=== PATIENT | male | born 1970 | race Caucasian/White ===

== ENCOUNTER 2019-06-14 14:43 | Emergency (ER) | payer MEDICARE ==
--- NOTE | 2019-06-14 15:37 | XRAY ---
Indication: Short of breath. Comparison: April 04, 2019. PA/lateral chest demonstrates 3 new left posterior metallic BBs. Remaining chest unchanged again demonstrating COPD and left perihilar postsurgical changes. Bony thorax intact again with mild degenerative changes, old left rib fractures, and pectus excavatum deformity. No new/acute cardiopulmonary abnormalities.
--- NOTE | 2019-06-14 16:04 | ERPHSYRPT ---
- History of Present Illness Time Seen by Provider: 06/14/19 15:00 Source: patient Exam Limitations: no limitations Patient Subjective Stated Complaint: States "I went to Dr. Nolan's office for check up today and to assess the swelling on your left upper back. Its been swollen for 3-4 days and I feel short of breath". Triage Nursing Assessment: Pt presents to ER from Dr. Nolan's office for Shortness of breath and swelling on left upper back x 3-4 days. Pt had partial collapsed lung approx 5 years ago with tubes placed in left upper back. Pt area has remaining scars from drains with surrounding area appears swollen and hard to touch. Skin is pink, warm, and dry. Resp are slightly labored, lung sounds are clear but diminished throughout. Pt is alert and oriented x 3. Ambulates and talks in full sentences. Physician History: 49 y/o white male with h/o left posterolateral chest wall mass with assoc soa. pt noticed 3 days ago. there is associated soa. pt had a traumatic left chest wall chest tube because of left pneumothorax. pt sent here from dr. haines office Timing/Duration: day(s) (3) Severity: mild Modifying Factors: Improves With: nothing Associated Symptoms: shortness of breath, No cough Allergies/Adverse Reactions: aspirin Allergy (Unknown, Verified 06/14/19 15:01) Home Medications: Albuterol 2.5 mg/3 ml Neb [Proventil 2.5 mg/3 ml Neb] 2.5 mg NEB QID PRN 06/14/19 [History] Albuterol Sulfate [Proair Respiclick] 90 mcg IH BID PRN 06/14/19 [History] Budesonide/Formoterol Fumarate [Symbicort 160-4.5 Mcg Inhaler] 160 mcg IH BID [History] Famotidine 20 mg [Pepcid 20 MG] 20 mg PO BID 06/14/19 [History] Metoprolol Succinate 100 mg [Toprol Xl 100 MG] 100 mg PO DAILY 06/14/19 [ History] Tiotropium [place] [Spiriva] 1 cap PO DAILY 06/14/19 [History] Hx Tetanus, Diphtheria Vaccination/Date Given: Yes Hx Influenza Vaccination/Date Given: No Hx Pneumococcal Vaccination/Date Given: No Immunizations Up to Date: Yes - Review of Systems Constitutional: No Symptoms Eyes: No Symptoms Ears, Nose, & Throat: No Symptoms Respiratory: Dyspnea Cardiac: No Symptoms Abdominal/Gastrointestinal: No Symptoms Genitourinary Symptoms: No Symptoms Musculoskeletal: No Symptoms Skin: No Symptoms Neurological: No Symptoms Psychological: No Symptoms Endocrine: No Symptoms Hematologic/Lymphatic: No Symptoms Immunological/Allergic: No Symptoms All Other Systems: Reviewed and Negative - Past Medical History Pertinent Past Medical History: Yes Neurological History: No Pertinent History ENT History: No Pertinent History Cardiac History: Hypertension Respiratory History: Bronchitis, COPD, Emphysema, Pneumonia, Other Endocrine Medical History: No Pertinent History Musculoskeletal History: Osteoarthritis GI Medical History: GERD History: No Pertinent History Psycho-Social History: Anxiety, Depression Male Reproductive Disorders: No Pertinent History - Past Surgical History Past Surgical History: Yes Gastrointestinal: Appendectomy Male Surgical History: Testicular Surgery Other Surgical History: mole removed - Social History Smoking Status: Former smoker Exposure to second hand smoke: No Drug Use: none Patient Lives Alone: No - Nursing Vital Signs Nursing Vital Signs: Initial Vital Signs Temperature 98.6 F 06/14/19 14:44 Pulse Rate 85 06/14/19 14:44 Respiratory Rate 18 06/14/19 14:44 Blood Pressure 151/84 06/14/19 14:44 O2 Sat by Pulse Oximetry 98 06/14/19 14:44 Pain Scale Pain Intensity 4 - Physical Exam General Appearance: mild distress, alert, anxiety Eye Exam: PERRL/EOMI, eyes nml inspection Ears, Nose, Throat Exam: normal ENT inspection, moist mucous membranes Neck Exam: normal inspection, non-tender, supple, full range of motion Respiratory Exam: normal breath sounds, lungs clear, airway intact, diminished breath sounds (? 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 marlow. pt can be discharged to home if cxr reveals no acute cardiopulmonary issues cxr shows no acute cardiopulmonary abnormalities Discussed with Dr.: Zee Counseled pt/family regarding: diagnosis, need for follow-up, rad results - Departure Departure Disposition: Home Clinical Impression: Chest wall deformity Condition: Stable Critical Care Time: No Referrals: DEVANG MARLOW MD [Primary Care Provider] - Additional Instructions: follow up with primary doctor for further management
[2019-06-14 16:29] VITALS: O2SAT 94
[2019-06-14 17:00] VITALS: BP 126/85; PULSE 68
== END 2019-06-14 17:00 | disposition home or self-care (01) ==
LOC: ED 14:43
DX: M95.4 Acquired deformity of chest and rib (principal)
CPT/HCPCS: 71046; 99283

== ENCOUNTER 2019-09-28 09:33 | Day surgery (SDC) | payer MEDICARE ==
[2019-09-28] MEDS ORDERED: Lactated Ringers 1,000 ML IV ONE ×2 (09:52→11:11)
[2019-09-28] MEDS ORDERED: Lactated Ringers 1,000 ML IV SCH (10:00)
[2019-09-28] MEDS ORDERED: XYLOCAINE 1% HCL 20 ML MDV ONE (11:11)
[2019-09-28] MEDS ORDERED: Versed 2 MG/2 ML Injection ONE (12:22)
[2019-09-28] MEDS ORDERED: SUBLIMAZE 100 MCG/2 ML ONE (12:25)
[2019-09-28] MEDS ORDERED: DIPRIVAN 200 MG/20 ML IV ONE ×2 (12:26→12:49)
--- NOTE | 2019-09-28 13:41 | OP ---
SURGERY DATE/TIME: 09/28/2019 1223 PREOPERATIVE DIAGNOSIS: Left back wound. POSTOPERATIVE DIAGNOSIS: Left back abscess with retained foreign body. PROCEDURE: Left back wound exploration with removal of foreign body. SURGEON: Brien Guevara M.D. ANESTHESIA: MAC. ESTIMATED BLOOD LOSS: 25 ml. SPECIMEN: None. PATIENT CONDITION: Stable. COMPLICATIONS: None. HISTORY: A 49 year-old male presented to the office with drainage from a prior chest tube incision in his left posterior chest. He has intermittent purulent drainage and had been on and off antibiotics. Risk of continued infection, bleeding, chronic wound discussed with the patient and he elected to proceed with surgery. FINDINGS: Prolene rib stitch at the base of the wound with purulence and tracks in the skin. DESCRIPTION OF PROCEDURE: The patient was brought to operating room. He was placed right side down and appropriately padded. MAC anesthesia was induced. He was routinely prepped and draped. Time out was performed. There was a 1 cm wound with active purulent drainage a few centimeters inferior to the tip of the scapula at the prior chest tube incision site. This was probed. It extended down to the chest wall anterolateral towards thoracotomy incision. There is also a 1 cm healed over wound with skin at the thoracotomy incision which was incised and did not track anywhere. A 5 cm incision was placed over the fistulous track this was carried down to the latissimus. Latissimus was spread in the direction of its fibers. It was retracted out of the way. A Prolene stitch was found at the base of the wound. It appeared to be 0 Prolene rib stay suture from the thoracotomy closure. This was totally removed. It was about 7 cm long and knots were intact. The wound was copiously irrigated. The cavity and track were curetted. A [place] drain was placed in the middle of the wound and was closed with 0 Prolene suture. There is good hemostasis. All counts were correct. The patient was then taken to recovery in stable condition.
[2019-09-28 15:07] VITALS: BP 130/69; PULSE 63
[2019-09-28 15:22] VITALS: O2SAT 96
== END 2019-09-28 14:40 | disposition home or self-care (01) ==
LOC: SDC 09:33 → RAD 09:33 → SDC 14:40
PROVIDERS: ATTEND Surgery
DX: M79.5 Residual foreign body in soft tissue (principal)
CPT/HCPCS: J2250; J2704; J3010

== ENCOUNTER 2021-01-23 17:37 | Inpatient (IN) | payer MEDICARE ==
[2021-01-23] MEDS ORDERED: Sodium Chloride 0.9% 1000 ML 1,000 ML IV STA (18:16)
[2021-01-23] MEDS ORDERED: solu-MEDROL 125 MG IV ONE (18:16)
[2021-01-23] MEDS ORDERED: ROCEPHIN 1 Gm-D5w 50 ml Bag** 1 G/50 ML IVPB IV STA (18:16)
[2021-01-23] MEDS ORDERED: PROVENTIL 2.5 MG/3 ML NEB IH ONE ×2 (18:16→18:27)
[2021-01-23] MEDS ORDERED: solu-MEDROL 125 MG ONE (18:55)
[2021-01-23] MEDS ORDERED: Sodium Chloride 0.9% 1000 ML 1,000 ML ONE (18:55)
[2021-01-23] MEDS ORDERED: ROCEPHIN 1 Gm-D5w 50 ml Bag** 1 G/50 ML IVPB IV ONE (18:55)
[2021-01-23 18:58] LABS: Absolute Neutrophil Ct (ANC) 10.81 (1.4-6.9); BASOPHIL % 0.3 % (0.0-0.4); Basophil (Absolute #) 0.04 (0-0.4); Eosinophil % 8.4 % (0.00-5.0); Eosinophil (Absolute #) 1.22 (0-0.5); Hematocrit 43.3 % (42-50); Hemoglobin 13.8 gm/dl (12.5-18.0); Lymphocyte (Absolute #) 1.62 (1.0-4.6); Lymphocytes % 11.2 % (24.0-44.0); Mean Cell Volume 97.5 fl (78-100); Mean Corpuscular Hemoglobin 31.1 pg (26-32); Mean Corpuscular Hgb Concent. 31.9 g/dl (32-36); Mean Platelet Volume 8.6 fl (7.5-11.0); Monocyte (Absolute #) 0.78 (0.0-1.3); Monocytes % 5.4 % (0.0-12.0); Neutrophil % 74.7 % (36.0-66.0); Platelet Count 373 K/mm3 (150-450); Red Blood Count 4.44 M/mm3 (4.1-5.6); Red Cell Distribution Width 12.6 % (11.5-14.0); White Blood Count 14.5 K/mm3 (4.0-10.5)
[2021-01-23 19:06] LABS: INR 1.09 (0.8-3.0); PROTIME 12.3 SECONDS (8.83-12.87)
[2021-01-23 19:09] LABS: PTT 31.6 SECONDS (24.1-36.1)
[2021-01-23 19:17] LABS: INFLUENZA A NEGATIVE (NEGATIVE); INFLUENZA B NEGATIVE (NEGATIVE)
[2021-01-23 19:18] LABS: ALBUMIN 4.1 g/dL (3.5-5.0); ALKALINE PHOSPHATASE 64 U/L (38-126); BLOOD UREA NITROGEN 15 mg/dL (9-20); CHLORIDE 96 mmol/L (98-107); Calcium 9.4 mg/dL (8.4-10.2); Carbon Dioxide 36 mmol/L (22-30); Creatinine 1 1.26 mg/dL (0.66-1.25); EST GLOMERULAR FILTRATION RATE > 60.0 ML/MIN; Glucose 128 mg/dL (74-106); MAGNESIUM 1.8 mg/dL (1.6-2.3); NT PRO BNP 327 pg/mL (0-450); Potassium 4.1 mmol/L (3.5-5.1); SGOT/AST 49 U/L (17-59); SGPT/ALT 51 U/L (0-50); SODIUM 138 mmol/L (137-145); Total Protein 7.2 g/dL (6.3-8.2)
--- NOTE | 2021-01-23 20:59 | ERPHSYRPT ---
- History of Present Illness Time Seen by Provider: 01/23/21 18:00 Source: patient Exam Limitations: no limitations Patient Subjective Stated Complaint: SOB Triage Nursing Assessment: Patient brought back to ED via w/c and transferred to bed per self. Patient A+O X3. Patient's skin pink, warm and dry. Patient complains of SOB for the past two days that has gotten worse today after he attempted to mow a patch of grass. Patient's O2 89% on room air and placed on 2 liters per N/C. Patient's lungs diminished throughout. Patient denies pain or discomfort. Physician History: Patient is a 50-year-old male who presents with a complaint of shortness of breath. He has been sick for 2 days he has had no fever or sweats but has had some chills. He has produced increasing amounts of white phlegm sputum. He also complains of some abdominal soreness but says is been no nausea vomiting or diarrhea he was a smoker until a few years ago and since that time has not smoked. He is not on home O2 on arrival his O2 sat was 89%. Timing/Duration: day(s) (2) Activities at Onset: none Severity of Dyspnea-Max: moderate Severity of Dyspnea-Current: moderate Possible Cause: frequent episodes Modifying Factors: Improves With: nothing, coughing Associated Symptoms: cough, wheezing, weakness Allergies/Adverse Reactions: adhesive tape Adverse Reaction (Intermediate, Verified 01/23/21 17:52) Blisters aspirin Adverse Reaction (Intermediate, Verified 01/23/21 17:52) Shortness of Breath Home Medications: Albuterol 2.5 mg/3 ml Neb [Proventil 2.5 mg/3 ml Neb] 2.5 mg NEB QID PRN 06/14/19 [History] Albuterol Sulfate [Proair Respiclick] 90 mcg IH BID PRN 06/14/19 [History] Fluticasone/Umeclidin/Vilanter [Trelegy Ellipta 100-62.5-25] 1 each IH DAILY 09/28/19 [History] Metoprolol Succinate 100 mg [Toprol Xl 100 MG] 1 tab PO DAILY 01/23/21 [History] Hx Tetanus, Diphtheria Vaccination/Date Given: Yes Hx Influenza Vaccination/Date Given: Yes Hx Pneumococcal Vaccination/Date Given: No Immunizations Up to Date: Yes Travel Risk - International Travel Have you traveled outside of the country in past 3 weeks: No - Coronavirus Screening Are you exhibiting any of the following symptoms?: No Close contact with a COVID-19 positive Pt in past 14-21 Days: No - Vaccine Status Have you recieved a Covid-19 vaccination: Yes 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[employer] - Review of Systems Constitutional: Chills, No Fever Eyes: No Symptoms Ears, Nose, & Throat: No Symptoms Respiratory: Cough, Dyspnea, Dyspnea on Exertion (MONTEZ), Wheezing Cardiac: No Chest Pain, No Edema, No Syncope Abdominal/Gastrointestinal: No Abdominal Pain, No Nausea, No Vomiting, No Diarrhea Genitourinary Symptoms: No Dysuria Musculoskeletal: No Back Pain, No Neck Pain Skin: No Rash Neurological: No Dizziness, No Focal Weakness, No Sensory Changes Psychological: No Symptoms Endocrine: No Symptoms All Other Systems: Reviewed and Negative - Past Medical History Pertinent Past Medical History: Yes Neurological History: No Pertinent History ENT History: No Pertinent History Cardiac History: Hypertension Respiratory History: Bronchitis, COPD, Emphysema, Pneumonia, Other Endocrine Medical History: No Pertinent History Musculoskeletal History: Osteoarthritis GI Medical History: GERD History: No Pertinent History Psycho-Social History: Anxiety, Depression Male Reproductive Disorders: No Pertinent History Other Medical History: asthma - Past Surgical History Past Surgical History: Yes Neuro Surgical History: No Pertinent History Cardiac: No Pertinent History Respiratory: Chest Surgery Gastrointestinal: Appendectomy Genitourinary: No Pertinent History Musculoskeletal: No Pertinent History Male Surgical History: Testicular Surgery Other Surgical History: mole removed from chest, collapsed lung with chest tube and removal (suspected suture left in place), undescended testicle right side, - Social History Smoking Status: Former smoker Exposure to second hand smoke: No Drug Use: none Patient Lives Alone: Yes - Nursing Vital Signs Nursing Vital Signs: Initial Vital Signs Temperature 98.0 F 01/23/21 17:57 Pulse Rate 81 01/23/21 17:57 Respiratory Rate 25 H 01/23/21 17:57 Blood Pressure 153/84 01/23/21 17:57 O2 Sat by Pulse Oximetry 89 L 01/23/21 17:57 Pain Scale Pain Intensity 0 - Physical Exam General Appearance: moderate distress, alert Eye Exam: PERRL/EOMI Ears, Nose, Throat Exam: hearing grossly normal, normal ENT inspection Neck Exam: normal inspection, supple Respiratory Exam: diminished breath sounds, crackles/rales, rhonchi, wheezing Cardiovascular/Chest Exam: normal heart sounds, regular rate/rhythm Abdominal/Gastrointestinal Exam: soft, No tenderness, No distention, No mass Extremity Exam: non-tender, normal range of motion, normal inspection, no calf tenderness, no pedal edema Neurologic Exam: alert, oriented x 3, cooperative, 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, sensation nml, No motor deficits Skin Exam: rash (Neurolysed flaky dry rash consistent with severe eczema), No dry SpO2 Interpretation: normal SpO2: 100 O2 Delivery: Nasal Cannula - Course Nursing assessment & vital signs reviewed: Yes EKG Interpreted by Me: RATE (78), Sinus Rhythm, NORMAL AXIS, NORMAL INTERVALS, NORMAL QRS, Non-specific ST Changes - Radiology Exams Chest X-ray Interpretation: Interpreted by me (X-ray shows changes of COPD but no definite infiltrates.) Ordered Tests: Active Orders 24 hr Category Date Time Status Assistant Mechanic STAT Care 01/23/21 18:17 Active EKG-ER Only STAT Care 01/23/21 18:16 Active IV Insertion STAT Care 01/23/21 18:16 Active Oxygen-ED Only Nasal Cannula 2 lpm Care 01/23/21 18:16 Active Pulse Oximetry (ED) STAT Care 01/23/21 18:16 Active CHEST 1 VIEW (PORTABLE) Stat Exams 01/23/21 18:17 Taken BLOOD CULTURE Stat Lab 01/23/21 18:54 Received CBC W DIFF Stat Lab 01/23/21 18:54 Completed CMP Stat Lab 01/23/21 18:54 Completed D-DIMER QUANTITATIVE Stat Lab 01/23/21 18:54 Completed INFLUENZA A+B KVNG Stat Lab 01/23/21 18:54 Completed Lactic Acid Stat Lab 01/23/21 18:51 Completed MAGNESIUM Stat Lab 01/23/21 18:54 Completed NT PRO BNP Stat Lab 01/23/21 18:54 Completed PROTIME WITH INR Stat Lab 01/23/21 18:54 Completed PTT Stat Lab 01/23/21 18:54 Completed TROPONIN Q3H Lab 01/23/21 18:54 Completed TROPONIN Q3H Lab 01/23/21 21:30 Ordered TROPONIN Q3H Lab 01/24/21 00:30 Ordered TROPONIN Q3H Lab 01/24/21 03:30 Ordered TROPONIN Q3H Lab 01/24/21 06:30 Ordered UA W/RFX UR CULTURE Stat Lab 01/23/21 20:50 Received Respiratory Therapy Assessment DAILY RT 01/23/21 19:27 Active Medication Summary Discontinued Medications Generic Name Dose Route Start Last Admin Trade Name Tomas PRN Reason Stop Dose Admin Albuterol Sulfate 2.5 mg 01/23/21 18:16 01/23/21 18:33 Proventil 2.5 Mg/3 Ml Neb IH 01/23/21 18:17 2.5 mg STAT ONE Administration Albuterol Sulfate Confirm 01/23/21 18:27 Proventil 2.5 Mg/3 Ml Neb Administered 01/23/21 18:28 Dose 2.5 mg IH .STK-MED ONE Sodium Chloride 1,000 mls @ 999 mls/hr 01/23/21 18:16 01/23/21 20:16 Sodium Chloride 0.9% 1000 Ml IV 01/23/21 19:16 Infused .Q1H1M STA Infusion Ceftriaxone Sodium/Dextrose 1 g in 50 mls @ 100 mls/hr 01/23/21 18:16 01/23/21 20:16 Rocephin 1 Gm-D5w 50 Ml Bag IV 01/23/21 18:45 Infused STAT STA Infusion Sodium Chloride Confirm 01/23/21 18:55 Sodium Chloride 0.9% 1000 Ml Administered 01/23/21 18:56 Dose 1,000 mls @ ud .ROUTE .STK-MED ONE Ceftriaxone Sodium/Dextrose Confirm 01/23/21 18:55 Rocephin 1 Gm-D5w 50 Ml Bag Administered 01/23/21 18:56 Dose 1 g in 50 mls @ ud IV .STK-MED ONE Methylprednisolone Sodium Succinate 125 mg 01/23/21 18:16 01/23/21 19:09 Solu-Medrol 125 Mg IV 01/23/21 18:17 125 mg STAT ONE Administration Methylprednisolone Sodium Succinate Confirm 01/23/21 18:55 Solu-Medrol 125 Mg Administered 01/23/21 18:56 Dose 125 mg .ROUTE .STK-MED ONE Lab/Rad Data: Laboratory Result Diagrams 01/23/21 18:54 01/23/21 18:54 Laboratory Results 01/23/21 01/23/21 01/23/21 Range/Units 18:54 18:54 18:54 WBC (4.0-10.5) K/mm3 RBC (4.1-5.6) M/mm3 Hgb (12.5-18.0) gm/dl Hct (42-50) % MCV (78-100) fl MCH (26-32) pg MCHC (32-36) g/dl RDW (11.5-14.0) % Plt Count (150-450) K/mm3 MPV (7.5-11.0) fl Gran % (36.0-66.0) % Eos # (Auto) (0-0.5) Absolute Lymphs (auto) (1.0-4.6) Absolute Monos (auto) (0.0-1.3) Lymphocytes % (24.0-44.0) % Monocytes % (0.0-12.0) % Eosinophils % (0.00-5.0) % Basophils % (0.0-0.4) % Absolute Granulocytes (1.4-6.9) Basophils # (0-0.4) PT 12.3 (8.83-12.87) SECONDS INR 1.09 (0.8-3.0) APTT 31.6 (24.1-36.1) SECONDS D-Dimer 497 (215-500) ng/mL Sodium 138 (137-145) mmol/L Potassium 4.1 (3.5-5.1) mmol/L Chloride 96 L (98-107) mmol/L Carbon Dioxide 36 H (22-30) mmol/L Anion Gap 9.0 (5-15) MEQ/L BUN 15 (9-20) mg/dL Creatinine 1.26 H (0.66-1.25) mg/dL Estimated GFR > 60.0 ML/MIN Glucose 128 H (74-106) mg/dL Lactic Acid (0.4-2.0) Calcium 9.4 (8.4-10.2) mg/dL Magnesium 1.8 (1.6-2.3) mg/dL Total Bilirubin 0.30 (0.2-1.3) mg/dL AST 49 (17-59) U/L ALT 51 H (0-50) U/L Alkaline Phosphatase 64 (38-126) U/L Troponin I < 0.012 (0.000-0.034) ng/mL NT-Pro-B Natriuret Pep 327 (0-450) pg/mL Serum Total Protein 7.2 (6.3-8.2) g/dL Albumin 4.1 (3.5-5.0) g/dL Influenza Type A Ag (NEGATIVE) Influenza Type B Ag (NEGATIVE) 01/23/21 01/23/21 01/23/21 Range/Units 18:54 18:54 18:51 WBC 14.5 H (4.0-10.5) K/mm3 RBC 4.44 (4.1-5.6) M/mm3 Hgb 13.8 (12.5-18.0) gm/dl Hct 43.3 (42-50) % MCV 97.5 (78-100) fl MCH 31.1 (26-32) pg MCHC 31.9 L (32-36) g/dl RDW 12.6 (11.5-14.0) % Plt Count 373 (150-450) K/mm3 MPV 8.6 (7.5-11.0) fl Gran % 74.7 H (36.0-66.0) % Eos # (Auto) 1.22 H (0-0.5) Absolute Lymphs (auto) 1.62 (1.0-4.6) Absolute Monos (auto) 0.78 (0.0-1.3) Lymphocytes % 11.2 L (24.0-44.0) % Monocytes % 5.4 (0.0-12.0) % Eosinophils % 8.4 H (0.00-5.0) % Basophils % 0.3 (0.0-0.4) % Absolute Granulocytes 10.81 H (1.4-6.9) Basophils # 0.04 (0-0.4) PT (8.83-12.87) SECONDS INR (0.8-3.0) APTT (24.1-36.1) SECONDS D-Dimer (215-500) ng/mL Sodium (137-145) mmol/L Potassium (3.5-5.1) mmol/L Chloride (98-107) mmol/L Carbon Dioxide (22-30) mmol/L Anion Gap (5-15) MEQ/L BUN (9-20) mg/dL Creatinine (0.66-1.25) mg/dL Estimated GFR ML/MIN Glucose (74-106) mg/dL Lactic Acid 0.7 (0.4-2.0) Calcium (8.4-10.2) mg/dL Magnesium (1.6-2.3) mg/dL Total Bilirubin (0.2-1.3) mg/dL AST (17-59) U/L ALT (0-50) U/L Alkaline Phosphatase (38-126) U/L Troponin I (0.000-0.034) ng/mL NT-Pro-B Natriuret Pep (0-450) pg/mL Serum Total Protein (6.3-8.2) g/dL Albumin (3.5-5.0) g/dL Influenza Type A Ag NEGATIVE (NEGATIVE) Influenza Type B Ag NEGATIVE (NEGATIVE) - Progress Progress: improved Air Movement: fair Blood Culture(s) Obtained: No Antibiotics given: Yes Discussed with DrFiliberto: Cindy Will see patient in: hospital (observation) - Departure Departure Disposition: Observation Clinical Impression: COPD exacerbation Condition: Stable Critical Care Time: No Referrals: DEVANG PENG MD [Primary Care Provider] - Instructions: Chronic Obstructive Pulmonary Disease, Exacerbation of COPD (DC)
[2021-01-23 21:00] LABS: Appearance CLEAR (CLEAR); Bilirubin NEGATIVE (NEGATIVE); Blood SMALL Ery/ul (0-5); Glucose NEGATIVE (NEGATIVE); Hyaline Casts 0-2 /LPF (0-2); Ketones NEGATIVE (NEGATIVE); Leukocyte Esterase NEGATIVE (NEGATIVE); Mucus SLIGHT /HPF (NEGATIVE); Nitrite NEGATIVE (NEGATIVE); Protein,Urine Dip NEGATIVE (Negative); Specific Gravity 1.024 (1.005-1.025); Urobilinogen NEGATIVE mg/dL (0-1)
[2021-01-23] MEDS ORDERED: solu-MEDROL 125 MG IV SCH (21:30)
[2021-01-23 22:22] LABS: INFLUENZA A NEGATIVE (NEGATIVE); INFLUENZA B NEGATIVE (NEGATIVE); RESPIRATORY SYNCTIAL VIRUS NEGATIVE (Negative)
[2021-01-24] MEDS: DUONEB 0.5-3 MG/3 ml Neb IH SCH ×7 (00:26→23:24)
[2021-01-24] MEDS: Sodium Chloride 0.9% 1000 ML 1,000 ML IV SCH ×3 (01:14→16:10)
[2021-01-24] MEDS ORDERED: PROVENTIL 2.5 MG/3 ML NEB IH PRN (01:15)
[2021-01-24 05:40] LABS: Hematocrit 40.9 % (42-50); Mean Cell Volume 98.3 fl (78-100); Mean Corpuscular Hemoglobin 31.3 pg (26-32); Mean Corpuscular Hgb Concent. 31.8 g/dl (32-36); Mean Platelet Volume 8.9 fl (7.5-11.0); Platelet Count 325 K/mm3 (150-450); Red Blood Count 4.16 M/mm3 (4.1-5.6); Red Cell Distribution Width 12.6 % (11.5-14.0); White Blood Count 9.8 K/mm3 (4.0-10.5)
[2021-01-24 06:05] LABS: ANION GAP 8.3 MEQ/L (5-15); BLOOD UREA NITROGEN 14 mg/dL (9-20); CHLORIDE 100 mmol/L (98-107); Calcium 8.4 mg/dL (8.4-10.2); Carbon Dioxide 32 mmol/L (22-30); Creatinine 1 0.84 mg/dL (0.66-1.25); EST GLOMERULAR FILTRATION RATE > 60.0 ML/MIN; Glucose 147 mg/dL (74-106); MAGNESIUM 1.9 mg/dL (1.6-2.3); Potassium 4.4 mmol/L (3.5-5.1); SODIUM 137 mmol/L (137-145)
--- NOTE | 2021-01-24 07:22 | PCM.HP ---
History of Present Illness - Chief Complaint Chief Complaint: shortness of breath for 23 days History of Present Illness: is a 50 year old male.presents with a complaint of shortness of breath. He has been sick for 2 days he has had no fever or sweats but has had some chills. He has produced increasing amounts of white phlegm sputum. He also complains of some abdominal soreness but says is been no nausea vomiting or diarrhea he was a smoker until a few years ago and since that time has not smoked. He is not on home O2 on arrival his O2 sat was 89%. Timing/Duration: day(s) (2) Activities at Onset: none Severity of Dyspnea-Max: moderate Severity of Dyspnea-Current: moderate Possible Cause: frequent episodes Modifying Factors: Improves With: nothing, coughing Associated Symptoms: cough, wheezing, weakness - Review of Systems Constitutional: No Fever, No Chills Eyes: No Symptoms Ears, Nose, & Throat: No Symptoms Respiratory: Cough, Orthopnea, Short Of Breath, Wheezing Cardiac: No Chest Pain, No Edema, No Syncope Abdominal/Gastrointestinal: No Abdominal Pain, No Nausea, No Vomiting, No Diarrhea Genitourinary Symptoms: No Dysuria Musculoskeletal: No Back Pain, No Neck Pain Skin: No Rash Neurological: No Dizziness, No Focal Weakness, No Sensory Changes Psychological: No Symptoms Endocrine: No Symptoms Hematologic/Lymphatic: No Symptoms Immunological/Allergic: No Symptoms Medications & Allergies Home Medications: Home Medication List Albuterol 2.5 mg/3 ml Neb [Proventil 2.5 mg/3 ml Neb] 2.5 mg NEB QID PRN 06/14/19 [History Confirmed 01/23/21] Albuterol Sulfate [Proair Respiclick] 90 mcg IH BID PRN 06/14/19 [History Confirmed 01/23/21] Fluticasone/Umeclidin/Vilanter [Trelegy Ellipta 100-62.5-25] 1 each IH DAILY 09/28/19 [History Confirmed 01/23/21] Metoprolol Succinate 100 mg [Toprol Xl 100 MG] 1 tab PO DAILY 01/23/21 [History Confirmed 01/23/21] Allergies/Adverse Reactions: Allergies Allergy/AdvReac Type Severity Reaction Status Date / Time adhesive tape AdvReac Intermediate Blisters Verified 01/23/21 17:52 aspirin AdvReac Intermediate Shortness Verified 01/23/21 17:52 of Breath - Past Medical History Past Medical History: Yes Neurological History: No Pertinent History ENT History: No Pertinent History Cardiac History: Hypertension Respiratory History: Bronchitis, COPD, Emphysema, Pneumonia, Other Endocrine Medical History: No Pertinent History Musculoskelatal History: Osteoarthritis GI Medical History: GERD History: No Pertinent History Pyscho-Social History: Anxiety, Depression Male Reproductive Disorders: No Pertinent History Comment: asthma - Past Surgical History Past Surgical History: Yes Neuro Surgical History: No Pertinent History Cardiac History: No Pertinent History Respiratory Surgery: Chest Surgery GI Surgical History: Appendectomy Genitourinary Surgical Hx: No Pertinent History Musculskeletal Surgical Hx: No Pertinent History Male Surgical History: Testicular Surgery Other Surgical History: mole removed from chest, collapsed lung with chest tube and removal (suspected suture left in place), undescended testicle right side, - Social History Smoking Status: Former smoker Exposure to second hand smoke: No Alcohol: None Drug Use: none - Physical Exam Vital Signs: Vital Signs - 24 hr Temp Pulse Resp BP Pulse Ox 01/24/21 06:54 98.2 F 58 L 20 125/58 98 01/24/21 05:21 59 L 18 98 01/24/21 04:00 97.9 F 58 L 19 119/64 97 01/24/21 00:26 67 12 99 01/24/21 00:00 97.0 F 67 20 148/85 99 01/23/21 22:11 58 L 106/54 97 01/23/21 21:38 61 132/82 99 01/23/21 21:01 100 01/23/21 20:18 66 17 132/80 100 01/23/21 19:17 73 18 131/83 100 01/23/21 18:34 101 H 20 100 01/23/21 18:28 89 L 01/23/21 17:57 98.0 F 81 25 H 153/84 89 L Oxygen-Last 24 hours Oxygen Flowrate (L/min)-RT 2 General Appearance: no apparent distress, alert Neurologic Exam: alert, oriented x 3, cooperative, normal mood/affect, nml cerebellar function, nml station & gait, sensation nml, No motor deficits Eye Exam: PERRL/EOMI, eyes nml inspection Ears, Nose, Throat Exam: normal ENT inspection, TMs normal, pharynx normal, moist mucous membranes Neck Exam: normal inspection, non-tender, supple, full range of motion Respiratory Exam: diminished breath sounds, crackles/rales, rhonchi, wheezing, No respiratory distress Cardiovascular Exam: regular rate/rhythm, normal heart sounds, normal peripheral pulses Gastrointestinal/Abdomen Exam: soft, normal bowel sounds, No tenderness, No mass Back Exam: normal inspection, normal range of motion, No CVA tenderness, No vertebral tenderness Extremity Exam: normal inspection, normal range of motion, pelvis stable Skin Exam: normal color, warm, dry, No rash Lymphatic Exam: No adenopathy Results - Labs Lab/Micro Results: Lab Results-Last 24 Hours 01/23/21 01/23/21 01/23/21 Range/Units 18:51 18:54 18:54 WBC 14.5 H (4.0-10.5) K/mm3 RBC 4.44 (4.1-5.6) M/mm3 Hgb 13.8 (12.5-18.0) gm/dl Hct 43.3 (42-50) % MCV 97.5 (78-100) fl MCH 31.1 (26-32) pg MCHC 31.9 L (32-36) g/dl RDW 12.6 (11.5-14.0) % Plt Count 373 (150-450) K/mm3 MPV 8.6 (7.5-11.0) fl Gran % 74.7 H (36.0-66.0) % Eos # (Auto) 1.22 H (0-0.5) Absolute Lymphs (auto) 1.62 (1.0-4.6) Absolute Monos (auto) 0.78 (0.0-1.3) Lymphocytes % 11.2 L (24.0-44.0) % Monocytes % 5.4 (0.0-12.0) % Eosinophils % 8.4 H (0.00-5.0) % Basophils % 0.3 (0.0-0.4) % Absolute Granulocytes 10.81 H (1.4-6.9) Basophils # 0.04 (0-0.4) PT (8.83-12.87) SECONDS INR (0.8-3.0) APTT (24.1-36.1) SECONDS D-Dimer (215-500) ng/mL Sodium (137-145) mmol/L Potassium (3.5-5.1) mmol/L Chloride (98-107) mmol/L Carbon Dioxide (22-30) mmol/L Anion Gap (5-15) MEQ/L BUN (9-20) mg/dL Creatinine (0.66-1.25) mg/dL Estimated GFR ML/MIN Glucose (74-106) mg/dL Lactic Acid 0.7 (0.4-2.0) Calcium (8.4-10.2) mg/dL Magnesium (1.6-2.3) mg/dL Total Bilirubin (0.2-1.3) mg/dL AST (17-59) U/L ALT (0-50) U/L Alkaline Phosphatase (38-126) U/L Troponin I (0.000-0.034) ng/mL NT-Pro-B Natriuret Pep (0-450) pg/mL Serum Total Protein (6.3-8.2) g/dL Albumin (3.5-5.0) g/dL Urine Color (YELLOW) Urine Appearance (CLEAR) Urine pH (5-6) Ur Specific [place] (1.005-1.025) Urine Protein (Negative) Urine Ketones (NEGATIVE) Urine Blood (0-5) Marcos/ul Urine Nitrite (NEGATIVE) Urine Bilirubin (NEGATIVE) Urine Urobilinogen (0-1) mg/dL Ur Leukocyte Esterase (NEGATIVE) Urine WBC (Auto) (0-5) /HPF Urine RBC (Auto) (0-2) /HPF U Hyaline Cast (Auto) (0-2) /LPF U Epithel Cells (Auto) (FEW) /HPF Urine Bacteria (Auto) (NEGATIVE) /HPF Urine Mucus (Auto) (NEGATIVE) /HPF Urine Culture Reflexed (NO) Urine Glucose (NEGATIVE) mg/dL Influenza Type A Ag NEGATIVE (NEGATIVE) Influenza Type B Ag NEGATIVE (NEGATIVE) RSV (PCR) (Negative) SARS-CoV-2 (PCR) (NEGATIVE) 01/23/21 01/23/21 01/23/21 Range/Units 18:54 18:54 18:54 WBC (4.0-10.5) K/mm3 RBC (4.1-5.6) M/mm3 Hgb (12.5-18.0) gm/dl Hct (42-50) % MCV (78-100) fl MCH (26-32) pg MCHC (32-36) g/dl RDW (11.5-14.0) % Plt Count (150-450) K/mm3 MPV (7.5-11.0) fl Gran % (36.0-66.0) % Eos # (Auto) (0-0.5) Absolute Lymphs (auto) (1.0-4.6) Absolute Monos (auto) (0.0-1.3) Lymphocytes % (24.0-44.0) % Monocytes % (0.0-12.0) % Eosinophils % (0.00-5.0) % Basophils % (0.0-0.4) % Absolute Granulocytes (1.4-6.9) Basophils # (0-0.4) PT 12.3 (8.83-12.87) SECONDS INR 1.09 (0.8-3.0) APTT 31.6 (24.1-36.1) SECONDS D-Dimer 497 (215-500) ng/mL Sodium 138 (137-145) mmol/L Potassium 4.1 (3.5-5.1) mmol/L Chloride 96 L (98-107) mmol/L Carbon Dioxide 36 H (22-30) mmol/L Anion Gap 9.0 (5-15) MEQ/L BUN 15 (9-20) mg/dL Creatinine 1.26 H (0.66-1.25) mg/dL Estimated GFR > 60.0 ML/MIN Glucose 128 H (74-106) mg/dL Lactic Acid (0.4-2.0) Calcium 9.4 (8.4-10.2) mg/dL Magnesium 1.8 (1.6-2.3) mg/dL Total Bilirubin 0.30 (0.2-1.3) mg/dL AST 49 (17-59) U/L ALT 51 H (0-50) U/L Alkaline Phosphatase 64 (38-126) U/L Troponin I < 0.012 (0.000-0.034) ng/mL NT-Pro-B Natriuret Pep 327 (0-450) pg/mL Serum Total Protein 7.2 (6.3-8.2) g/dL Albumin 4.1 (3.5-5.0) g/dL Urine Color (YELLOW) Urine Appearance (CLEAR) Urine pH (5-6) Ur Specific [place] (1.005-1.025) Urine Protein (Negative) Urine Ketones (NEGATIVE) Urine Blood (0-5) Marcos/ul Urine Nitrite (NEGATIVE) Urine Bilirubin (NEGATIVE) Urine Urobilinogen (0-1) mg/dL Ur Leukocyte Esterase (NEGATIVE) Urine WBC (Auto) (0-5) /HPF Urine RBC (Auto) (0-2) /HPF U Hyaline Cast (Auto) (0-2) /LPF U Epithel Cells (Auto) (FEW) /HPF Urine Bacteria (Auto) (NEGATIVE) /HPF Urine Mucus (Auto) (NEGATIVE) /HPF Urine Culture Reflexed (NO) Urine Glucose (NEGATIVE) mg/dL Influenza Type A Ag (NEGATIVE) Influenza Type B Ag (NEGATIVE) RSV (PCR) (Negative) SARS-CoV-2 (PCR) (NEGATIVE) 01/23/21 01/23/21 01/23/21 Range/Units 20:50 21:30 21:30 WBC (4.0-10.5) K/mm3 RBC (4.1-5.6) M/mm3 Hgb (12.5-18.0) gm/dl Hct (42-50) % MCV (78-100) fl MCH (26-32) pg MCHC (32-36) g/dl RDW (11.5-14.0) % Plt Count (150-450) K/mm3 MPV (7.5-11.0) fl Gran % (36.0-66.0) % Eos # (Auto) (0-0.5) Absolute Lymphs (auto) (1.0-4.6) Absolute Monos (auto) (0.0-1.3) Lymphocytes % (24.0-44.0) % Monocytes % (0.0-12.0) % Eosinophils % (0.00-5.0) % Basophils % (0.0-0.4) % Absolute Granulocytes (1.4-6.9) Basophils # (0-0.4) PT (8.83-12.87) SECONDS INR (0.8-3.0) APTT (24.1-36.1) SECONDS D-Dimer (215-500) ng/mL Sodium (137-145) mmol/L Potassium (3.5-5.1) mmol/L Chloride (98-107) mmol/L Carbon Dioxide (22-30) mmol/L Anion Gap (5-15) MEQ/L BUN (9-20) mg/dL Creatinine (0.66-1.25) mg/dL Estimated GFR ML/MIN Glucose (74-106) mg/dL Lactic Acid (0.4-2.0) Calcium (8.4-10.2) mg/dL Magnesium (1.6-2.3) mg/dL Total Bilirubin (0.2-1.3) mg/dL AST (17-59) U/L ALT (0-50) U/L Alkaline Phosphatase (38-126) U/L Troponin I < 0.012 (0.000-0.034) ng/mL NT-Pro-B Natriuret Pep (0-450) pg/mL Serum Total Protein (6.3-8.2) g/dL Albumin (3.5-5.0) g/dL Urine Color YELLOW (YELLOW) Urine Appearance CLEAR (CLEAR) Urine pH 5.0 (5-6) Ur Specific [place] 1.024 (1.005-1.025) Urine Protein NEGATIVE (Negative) Urine Ketones NEGATIVE (NEGATIVE) Urine Blood SMALL (0-5) Marcos/ul Urine Nitrite NEGATIVE (NEGATIVE) Urine Bilirubin NEGATIVE (NEGATIVE) Urine Urobilinogen NEGATIVE (0-1) mg/dL Ur Leukocyte Esterase NEGATIVE (NEGATIVE) Urine WBC (Auto) NONE (0-5) /HPF Urine RBC (Auto) 3-5 (0-2) /HPF U Hyaline Cast (Auto) 0-2 (0-2) /LPF U Epithel Cells (Auto) NONE (FEW) /HPF Urine Bacteria (Auto) NONE (NEGATIVE) /HPF Urine Mucus (Auto) SLIGHT (NEGATIVE) /HPF Urine Culture Reflexed NO (NO) Urine Glucose NEGATIVE (NEGATIVE) mg/dL Influenza Type A Ag NEGATIVE (NEGATIVE) Influenza Type B Ag NEGATIVE (NEGATIVE) RSV (PCR) NEGATIVE (Negative) SARS-CoV-2 (PCR) NEGATIVE (NEGATIVE) 01/24/21 01/24/21 Range/Units 05:20 05:20 WBC 9.8 (4.0-10.5) K/mm3 RBC 4.16 (4.1-5.6) M/mm3 Hgb 13.0 (12.5-18.0) gm/dl Hct 40.9 L (42-50) % MCV 98.3 (78-100) fl MCH 31.3 (26-32) pg MCHC 31.8 L (32-36) g/dl RDW 12.6 (11.5-14.0) % Plt Count 325 (150-450) K/mm3 MPV 8.9 (7.5-11.0) fl Gran % (36.0-66.0) % Eos # (Auto) (0-0.5) Absolute Lymphs (auto) (1.0-4.6) Absolute Monos (auto) (0.0-1.3) Lymphocytes % (24.0-44.0) % Monocytes % (0.0-12.0) % Eosinophils % (0.00-5.0) % Basophils % (0.0-0.4) % Absolute Granulocytes (1.4-6.9) Basophils # (0-0.4) PT (8.83-12.87) SECONDS INR (0.8-3.0) APTT (24.1-36.1) SECONDS D-Dimer (215-500) ng/mL Sodium 137 (137-145) mmol/L Potassium 4.4 (3.5-5.1) mmol/L Chloride 100 (98-107) mmol/L Carbon Dioxide 32 H (22-30) mmol/L Anion Gap 8.3 (5-15) MEQ/L BUN 14 (9-20) mg/dL Creatinine 0.84 (0.66-1.25) mg/dL Estimated GFR > 60.0 ML/MIN Glucose 147 H (74-106) mg/dL Lactic Acid (0.4-2.0) Calcium 8.4 (8.4-10.2) mg/dL Magnesium 1.9 (1.6-2.3) mg/dL Total Bilirubin (0.2-1.3) mg/dL AST (17-59) U/L ALT (0-50) U/L Alkaline Phosphatase (38-126) U/L Troponin I (0.000-0.034) ng/mL NT-Pro-B Natriuret Pep (0-450) pg/mL Serum Total Protein (6.3-8.2) g/dL Albumin (3.5-5.0) g/dL Urine Color (YELLOW) Urine Appearance (CLEAR) Urine pH (5-6) Ur Specific [place] (1.005-1.025) Urine Protein (Negative) Urine Ketones (NEGATIVE) Urine Blood (0-5) Marcos/ul Urine Nitrite (NEGATIVE) Urine Bilirubin (NEGATIVE) Urine Urobilinogen (0-1) mg/dL Ur Leukocyte Esterase (NEGATIVE) Urine WBC (Auto) (0-5) /HPF Urine RBC (Auto) (0-2) /HPF U Hyaline Cast (Auto) (0-2) /LPF U Epithel Cells (Auto) (FEW) /HPF Urine Bacteria (Auto) (NEGATIVE) /HPF Urine Mucus (Auto) (NEGATIVE) /HPF Urine Culture Reflexed (NO) Urine Glucose (NEGATIVE) mg/dL Influenza Type A Ag (NEGATIVE) Influenza Type B Ag (NEGATIVE) RSV (PCR) (Negative) SARS-CoV-2 (PCR) (NEGATIVE) - Radiology Impressions Radiology Exams & Impressions: Radiology Procedures Category Date Time Status CHEST 1 VIEW (PORTABLE) Routine Exams 01/24/21 07:00 Taken CHEST 1 VIEW (PORTABLE) Stat Exams 01/23/21 18:17 Taken - Other Procedures and Tests Respiratory Therapy 01/23/21 19:27 Respiratory Therapy Assessment DAILY 01/23/21 21:01 Oxygen Nasal Cannula 2 lpm 01/24/21 07:00 Respiratory MDI BID Assessment/Plan (1) COPD exacerbation Current Visit: Yes Status: Acute Assessment & Plan: Last Vital Signs Temp 98.2 F 01/24/21 06:54 Pulse 58 L 01/24/21 06:54 Resp 20 01/24/21 06:54 BP 125/58 01/24/21 06:54 Pulse Ox 98 01/24/21 06:54 Allergies adhesive tape Adverse Reaction (Intermediate, Verified 01/23/21 17:52) Blisters aspirin Adverse Reaction (Intermediate, Verified 01/23/21 17:52) Shortness of Breath Active Medications Albuterol Sulfate (Proventil 2.5 Mg/3 Ml Neb) 2.5 mg IH Q4H PRN PRN PRN Reason: SHORTNESS OF BREATH/WHEEZING Stop: 02/23/21 01:14 Albuterol/Ipratropium (Duoneb 0.5-3 Mg/3 Ml Neb) 3 ml IH Q4HRT ANH Stop: 02/22/21 22:59 Last Admin: 01/24/21 05:22 Dose: Not Given Documented by: Sodium Chloride (Sodium Chloride 0.9% 1000 Ml) 1,000 mls @ 125 mls/hr IV .Q8H ANH Stop: 02/22/21 21:14 Last Admin: 01/24/21 01:14 Dose: 125 mls/hr Documented by: Ceftriaxone Sodium/Dextrose (Rocephin 1 Gm-D5w 50 Ml Bag) 1 g in 50 mls @ 100 mls/hr IV Q24H10 [facility] Stop: 01/27/21 09:59 Methylprednisolone Sodium Succinate (Solu-Medrol 125 Mg) 80 mg IV Q12H [facility] Stop: 02/23/21 07:59 Fluticasone/Salmeterol (Advair 250-50 Diskus 14 Dose) 1 each IH BIDRT [facility] Stop: 02/23/21 06:59 Intake & Output 01/23/21 01/24/21 11:59 11:59 Intake Total 652 Balance 652 Weight 64.8 kg Orders 01/24/21 01:13 Pulse Oximetry .spot check 01/24/21 01:15 Albuterol 2.5 mg/3 ml Neb [Proventil 2.5 mg/3 ml Neb] 2.5 mg IH Q4H PRN PRN 01/24/21 07:00 Fluticasone/Salmeterol Disc [Advair 250-50 Diskus 14 Dose] 1 each IH BIDRT Respiratory MDI BID Lab Tests 01/23/21 01/23/21 01/23/21 18:51 18:54 18:54 WBC 14.5 H RBC 4.44 Hgb 13.8 Hct 43.3 MCV 97.5 MCH 31.1 MCHC 31.9 L RDW 12.6 Plt Count 373 MPV 8.6 Gran % 74.7 H Eos # (Auto) 1.22 H Absolute Lymphs (auto) 1.62 Absolute Monos (auto) 0.78 Lymphocytes % 11.2 L Monocytes % 5.4 Eosinophils % 8.4 H Basophils % 0.3 Absolute Granulocytes 10.81 H Basophils # 0.04 PT INR APTT D-Dimer Sodium Potassium Chloride Carbon Dioxide Anion Gap BUN Creatinine Estimated GFR Glucose Lactic Acid 0.7 Calcium Magnesium Total Bilirubin AST ALT Alkaline Phosphatase Troponin I NT-Pro-B Natriuret Pep Serum Total Protein Albumin Urine Color Urine Appearance Urine pH Ur Specific [place] Urine Protein Urine Ketones Urine Blood Urine Nitrite Urine Bilirubin Urine Urobilinogen Ur Leukocyte Esterase Urine WBC (Auto) Urine RBC (Auto) U Hyaline Cast (Auto) U Epithel Cells (Auto) Urine Bacteria (Auto) Urine Mucus (Auto) Urine Culture Reflexed Urine Glucose Influenza Type A Ag NEGATIVE Influenza Type B Ag NEGATIVE RSV (PCR) SARS-CoV-2 (PCR) 01/23/21 01/23/21 01/23/21 18:54 18:54 18:54 WBC RBC Hgb Hct MCV MCH MCHC RDW Plt Count MPV Gran % Eos # (Auto) Absolute Lymphs (auto) Absolute Monos (auto) Lymphocytes % Monocytes % Eosinophils % Basophils % Absolute Granulocytes Basophils # PT 12.3 INR 1.09 APTT 31.6 D-Dimer 497 Sodium 138 Potassium 4.1 Chloride 96 L Carbon Dioxide 36 H Anion Gap 9.0 BUN 15 Creatinine 1.26 H Estimated GFR > 60.0 Glucose 128 H Lactic Acid Calcium 9.4 Magnesium 1.8 Total Bilirubin 0.30 AST 49 ALT 51 H Alkaline Phosphatase 64 Troponin I < 0.012 NT-Pro-B Natriuret Pep 327 Serum Total Protein 7.2 Albumin 4.1 Urine Color Urine Appearance Urine pH Ur Specific [place] Urine Protein Urine Ketones Urine Blood Urine Nitrite Urine Bilirubin Urine Urobilinogen Ur Leukocyte Esterase Urine WBC (Auto) Urine RBC (Auto) U Hyaline Cast (Auto) U Epithel Cells (Auto) Urine Bacteria (Auto) Urine Mucus (Auto) Urine Culture Reflexed Urine Glucose Influenza Type A Ag Influenza Type B Ag RSV (PCR) SARS-CoV-2 (PCR) 01/23/21 01/23/21 01/23/21 20:50 21:30 21:30 WBC RBC Hgb Hct MCV MCH MCHC RDW Plt Count MPV Gran % Eos # (Auto) Absolute Lymphs (auto) Absolute Monos (auto) Lymphocytes % Monocytes % Eosinophils % Basophils % Absolute Granulocytes Basophils # PT INR APTT D-Dimer Sodium Potassium Chloride Carbon Dioxide Anion Gap BUN Creatinine Estimated GFR Glucose Lactic Acid Calcium Magnesium Total Bilirubin AST ALT Alkaline Phosphatase Troponin I < 0.012 NT-Pro-B Natriuret Pep Serum Total Protein Albumin Urine Color YELLOW Urine Appearance CLEAR Urine pH 5.0 Ur Specific [place] 1.024 Urine Protein NEGATIVE Urine Ketones NEGATIVE Urine Blood SMALL Urine Nitrite NEGATIVE Urine Bilirubin NEGATIVE Urine Urobilinogen NEGATIVE Ur Leukocyte Esterase NEGATIVE Urine WBC (Auto) NONE Urine RBC (Auto) 3-5 U Hyaline Cast (Auto) 0-2 U Epithel Cells (Auto) NONE Urine Bacteria (Auto) NONE Urine Mucus (Auto) SLIGHT Urine Culture Reflexed NO Urine Glucose NEGATIVE Influenza Type A Ag NEGATIVE Influenza Type B Ag NEGATIVE RSV (PCR) NEGATIVE SARS-CoV-2 (PCR) NEGATIVE 01/24/21 01/24/21 05:20 05:20 WBC 9.8 RBC 4.16 Hgb 13.0 Hct 40.9 L MCV 98.3 MCH 31.3 MCHC 31.8 L RDW 12.6 Plt Count 325 MPV 8.9 Gran % Eos # (Auto) Absolute Lymphs (auto) Absolute Monos (auto) Lymphocytes % Monocytes % Eosinophils % Basophils % Absolute Granulocytes Basophils # PT INR APTT D-Dimer Sodium 137 Potassium 4.4 Chloride 100 Carbon Dioxide 32 H Anion Gap 8.3 BUN 14 Creatinine 0.84 Estimated GFR > 60.0 Glucose 147 H Lactic Acid Calcium 8.4 Magnesium 1.9 Total Bilirubin AST ALT Alkaline Phosphatase Troponin I NT-Pro-B Natriuret Pep Serum Total Protein Albumin Urine Color Urine Appearance Urine pH Ur Specific [place] Urine Protein Urine Ketones Urine Blood Urine Nitrite Urine Bilirubin Urine Urobilinogen Ur Leukocyte Esterase Urine WBC (Auto) Urine RBC (Auto) U Hyaline Cast (Auto) U Epithel Cells (Auto) Urine Bacteria (Auto) Urine Mucus (Auto) Urine Culture Reflexed Urine Glucose Influenza Type A Ag Influenza Type B Ag RSV (PCR) SARS-CoV-2 (PCR) Code(s): J44.1 - CHRONIC OBSTRUCTIVE PULMONARY DISEASE W (ACUTE) EXACERBATION (2) Chest wall deformity Current Visit: No Status: Chronic Code(s): M95.4 - ACQUIRED DEFORMITY OF CHEST AND RIB
--- NOTE | 2021-01-24 07:22 | XRAY ---
Indication: Short of breath. Comparison: June 14, 2019. Portable chest again demonstrates left mid to lower lung postsurgical changes with metallic densities. There remains a few tiny calcified granulomas. No focal infiltrate, consolidation, or large effusion. Heart and mediastinal structures within normal limits. Bony thorax intact again with old left rib fractures. Impression: Nonacute chest with chronic features.
--- NOTE | 2021-01-24 07:25 | XRAY ---
Indication: Short of breath. Comparison: One day earlier. Portable chest better inflated and remains clear with stable left lung postsurgical changes. Heart not enlarged. No new/acute abnormalities.
[2021-01-24] MEDS ORDERED: Lice Killing Shampoo TP ONE (08:15)
[2021-01-24] MEDS: solu-MEDROL 125 MG IV SCH ×2 (08:35→21:38)
[2021-01-24] MEDS: Toprol Xl 100 MG PO SCH (09:33)
[2021-01-24] MEDS: ADVAIR 250-50 DISKUS 14 DOSE IH SCH ×2 (10:16→19:37)
[2021-01-24] MEDS: ROCEPHIN 1 Gm-D5w 50 ml Bag** 1 G/50 ML IVPB IV SCH (21:37)
[2021-01-25] MEDS: Sodium Chloride 0.9% 1000 ML 1,000 ML IV SCH ×3 (00:27→16:26)
[2021-01-25] MEDS: DUONEB 0.5-3 MG/3 ml Neb IH SCH ×6 (03:14→23:49)
[2021-01-25] MEDS: ADVAIR 250-50 DISKUS 14 DOSE IH SCH ×2 (06:31→19:13)
--- NOTE | 2021-01-25 08:13 | PCM.NOTE ---
Date and Time: 01/25/21 0810 Subjective Assessment: patient still on 2 L oxygen, he has not been up to see how he tolerates activity because there is an IV in his left foot Objective Exam General Appearance: no apparent distress Neurologic Exam: alert, oriented x 3 Skin Exam: other (diffuse dry, flaking skin with sloughing excessively) Respiratory Exam: diminished breath sounds, prolonged expirations Cardiovascular Exam: regular rate/rhythm, normal heart sounds Extremity Exam: normal inspection, normal range of motion OBJECTIVE DATA Vital Signs: Vital Signs - 24 hr Temp Pulse Resp BP Pulse Ox 01/25/21 07:29 98.2 F 80 16 116/56 97 01/25/21 06:37 79 18 95 01/25/21 03:34 98.1 F 81 20 123/60 94 L 01/25/21 03:14 81 20 95 01/25/21 00:00 74 20 141/74 96 01/24/21 23:24 81 18 96 01/24/21 19:38 78 18 95 01/24/21 19:37 97.9 F 75 17 129/68 97 01/24/21 16:00 97.9 F 73 18 135/68 98 01/24/21 14:32 72 18 94 L 01/24/21 12:00 97.9 F 69 20 115/65 97 01/24/21 10:29 96 01/24/21 10:27 62 18 99 Pain Assessment - Last Documented Pain Intensity 0 Intake and Output: Intake & Output 01/22/21 01/23/21 01/24/21 01/25/21 11:59 11:59 11:59 11:59 Intake Total 772 4857 Output Total 2300 Balance 772 2557 Weight 64.8 kg 64.5 kg Radiology Exams: Radiology Procedures Category Date Time Status CHEST 1 VIEW (PORTABLE) Routine Exams 01/24/21 07:00 Completed CHEST 1 VIEW (PORTABLE) Stat Exams 01/23/21 18:17 Completed Assessment/Plan (1) COPD exacerbation Current Visit: Yes Status: Acute Assessment & Plan: continue abx, nebs and steroids, will attempt to wean oxygen Code(s): J44.1 - CHRONIC OBSTRUCTIVE PULMONARY DISEASE W (ACUTE) EXACERBATION (2) Xerosis of skin Current Visit: Yes Status: Acute Code(s): L85.3 - XEROSIS CUTIS
[2021-01-25] MEDS: solu-MEDROL 125 MG IV SCH ×2 (08:18→19:41)
[2021-01-25] MEDS: Toprol Xl 100 MG PO SCH (10:00)
[2021-01-25] MEDS: ENOXAPARIN SODIUM SQ SCH (10:00)
[2021-01-25] MEDS: ROCEPHIN 1 Gm-D5w 50 ml Bag** 1 G/50 ML IVPB IV SCH (21:23)
[2021-01-26] MEDS: Sodium Chloride 0.9% 1000 ML 1,000 ML IV SCH ×3 (00:59→20:22)
[2021-01-26] MEDS: DUONEB 0.5-3 MG/3 ml Neb IH SCH ×6 (03:40→22:43)
[2021-01-26 06:11] LABS: Absolute Neutrophil Ct (ANC) 15.27 (1.4-6.9); BASOPHIL % 0.2 % (0.0-0.4); Basophil (Absolute #) 0.03 (0-0.4); Eosinophil % 0.1 % (0.00-5.0); Eosinophil (Absolute #) 0.02 (0-0.5); Hematocrit 36.6 % (42-50); Hemoglobin 11.3 gm/dl (12.5-18.0); Lymphocyte (Absolute #) 1.25 (1.0-4.6); Lymphocytes % 7.2 % (24.0-44.0); Mean Cell Volume 100.8 fl (78-100); Mean Corpuscular Hemoglobin 31.1 pg (26-32); Mean Corpuscular Hgb Concent. 30.9 g/dl (32-36); Mean Platelet Volume 9.4 fl (7.5-11.0); Monocyte (Absolute #) 0.73 (0.0-1.3); Monocytes % 4.2 % (0.0-12.0); Neutrophil % 88.3 % (36.0-66.0); Platelet Count 307 K/mm3 (150-450); Red Blood Count 3.63 M/mm3 (4.1-5.6); Red Cell Distribution Width 12.7 % (11.5-14.0); White Blood Count 17.3 K/mm3 (4.0-10.5)
[2021-01-26 07:00] LABS: ANION GAP 9.6 MEQ/L (5-15); BLOOD UREA NITROGEN 14 mg/dL (9-20); CHLORIDE 102 mmol/L (98-107); Calcium 8.4 mg/dL (8.4-10.2); Carbon Dioxide 30 mmol/L (22-30); Creatinine 1 0.79 mg/dL (0.66-1.25); EST GLOMERULAR FILTRATION RATE > 60.0 ML/MIN; Glucose 119 mg/dL (74-106); Potassium 3.8 mmol/L (3.5-5.1); SODIUM 138 mmol/L (137-145)
[2021-01-26] MEDS: ADVAIR 250-50 DISKUS 14 DOSE IH SCH ×2 (07:47→18:54)
[2021-01-26] MEDS: solu-MEDROL 125 MG IV SCH ×2 (08:29→20:22)
[2021-01-26] MEDS: Zofran 4 MG/2 ML VIAL IV PRN ×2 (08:30→21:28)
[2021-01-26] MEDS: Toprol Xl 100 MG PO SCH (09:22)
[2021-01-26] MEDS: ENOXAPARIN SODIUM SQ SCH (09:22)
--- NOTE | 2021-01-26 10:39 | PCM.NOTE ---
Date and Time: 01/26/21 1038 Subjective Assessment: doing ok, nausea - Review of Systems Constitutional: No Fever, No Chills Eyes: No Symptoms Ears, Nose, & Throat: No Symptoms Respiratory: No Cough, No Short Of Breath Cardiac: No Chest Pain, No Edema, No Syncope Abdominal/Gastrointestinal: No Abdominal Pain, No Nausea, No Vomiting, No Diarrhea Genitourinary Symptoms: No Dysuria Musculoskeletal: No Back Pain, No Neck Pain Skin: No Rash Neurological: No Dizziness, No Focal Weakness, No Sensory Changes Psychological: No Symptoms Endocrine: No Symptoms Hematologic/Lymphatic: No Symptoms Immunological/Allergic: No Symptoms Objective Exam General Appearance: no apparent distress, alert Neurologic Exam: alert, oriented x 3, cooperative, normal mood/affect, nml cerebellar function, sensation nml, No motor deficits Skin Exam: normal color, warm, dry Eye Exam: PERRL, EOMI, eyes nml inspection Ears, Nose, Throat Exam: normal ENT inspection, pharynx normal, moist mucous membranes Neck Exam: normal inspection, non-tender, supple, full range of motion Respiratory Exam: normal breath sounds, lungs clear, No respiratory distress Cardiovascular Exam: regular rate/rhythm, normal heart sounds Gastrointestinal/Abdomen Exam: soft, No tenderness, No mass Extremity Exam: normal inspection, normal range of motion Back Exam: normal inspection, normal range of motion, No CVA tenderness, No vertebral tenderness Male Genitalia Exam: deferred Rectal Exam: deferred OBJECTIVE DATA Vital Signs: Vital Signs - 24 hr Temp Pulse Resp BP Pulse Ox 01/26/21 08:00 96 F 54 L 20 152/80 96 01/26/21 07:52 60 18 98 01/26/21 04:00 96.8 F 82 20 147/80 94 L 01/26/21 03:40 89 18 97 01/25/21 23:49 94 H 21 97 01/25/21 23:48 98.1 F 81 17 130/60 97 01/25/21 19:55 99.0 F 89 18 135/73 94 L 01/25/21 19:13 90 18 92 L 01/25/21 16:00 93 H 18 121/63 93 L 01/25/21 15:35 88 16 93 L 01/25/21 12:00 98 F 91 H 18 143/67 95 Oxygen-Last 24 hours Oxygen Flowrate (L/min)-RT 2 Pain Assessment - Last Documented Pain Intensity 0 Intake and Output: Intake & Output 01/23/21 01/24/21 01/25/21 01/26/21 11:59 11:59 11:59 11:59 Intake Total 772 4857 3667 Output Total 2300 150 Balance 772 8945 7072 Weight 64.8 kg 64.5 kg Lab Results: Lab Results-Last 24 Hours 01/26/21 01/26/21 Range/Units 05:13 05:13 WBC 17.3 H (4.0-10.5) K/mm3 RBC 3.63 L (4.1-5.6) M/mm3 Hgb 11.3 L (12.5-18.0) gm/dl Hct 36.6 L (42-50) % MCV 100.8 H (78-100) fl MCH 31.1 (26-32) pg MCHC 30.9 L (32-36) g/dl RDW 12.7 (11.5-14.0) % Plt Count 307 (150-450) K/mm3 MPV 9.4 (7.5-11.0) fl Gran % 88.3 H (36.0-66.0) % Eos # (Auto) 0.02 (0-0.5) Absolute Lymphs (auto) 1.25 (1.0-4.6) Absolute Monos (auto) 0.73 (0.0-1.3) Lymphocytes % 7.2 L (24.0-44.0) % Monocytes % 4.2 (0.0-12.0) % Eosinophils % 0.1 (0.00-5.0) % Basophils % 0.2 (0.0-0.4) % Absolute Granulocytes 15.27 H (1.4-6.9) Basophils # 0.03 (0-0.4) Sodium 138 (137-145) mmol/L Potassium 3.8 (3.5-5.1) mmol/L Chloride 102 (98-107) mmol/L Carbon Dioxide 30 (22-30) mmol/L Anion Gap 9.6 (5-15) MEQ/L BUN 14 (9-20) mg/dL Creatinine 0.79 (0.66-1.25) mg/dL Estimated GFR > 60.0 ML/MIN Glucose 119 H (74-106) mg/dL Calcium 8.4 (8.4-10.2) mg/dL Multi-Disciplinary Progress Notes: Multi-Disciplinary Progress Notes 01/26/21 00:10 Respiratory Note by Rudi Rodriguez WHEN I ARRIVED IN PT RM HE WAS IN THE BATHROOM AND COUGHING A LOT. ONCE PT CLIMBED BACK INTO BED HE WAS EXTREMELY SOB. SATS WERE 78% ON RA AND GRADULLY RECOVERED TO 88%. I STARTED TX AND PT CALMED DOWN. POST TX I PLACED PT ON 2LP FOR NIGHT USE AND INSTRUCTED THAT HE USE IT WHEN HE GOT UP TO THE RESTROOM. WILL ASK DAY SHIFT TO ATTEMPT TO WEAN AGAIN TOMORROW. CALL LIGHT W/I REACH. INFORMED LADLE FILLER. 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
[2021-01-26 11:40] LABS: ALBUMIN 3.1 g/dL (3.5-5.0); ALKALINE PHOSPHATASE 43 U/L (38-126); ANION GAP 8.7 MEQ/L (5-15); BLOOD UREA NITROGEN 14 mg/dL (9-20); CHLORIDE 102 mmol/L (98-107); Calcium 8.5 mg/dL (8.4-10.2); Carbon Dioxide 32 mmol/L (22-30); Creatinine 1 0.75 mg/dL (0.66-1.25); EST GLOMERULAR FILTRATION RATE > 60.0 ML/MIN; Glucose 113 mg/dL (74-106); Potassium 4.1 mmol/L (3.5-5.1); SGOT/AST 53 U/L (17-59); SGPT/ALT 52 U/L (0-50); SODIUM 138 mmol/L (137-145); Total Protein 5.6 g/dL (6.3-8.2)
[2021-01-26] MEDS: PROTONIX 40 MG IV IV SCH (12:20)
--- NOTE | 2021-01-26 12:45 | XRAY ---
Indication: Abdomen pain, nausea, vomiting, and dizziness. Multiple contiguous axial images obtained through the abdomen and pelvis prior to and following 80 cc Isovue 370 contrast as ordered. Contrast injected through indwelling left foot IV access site. Comparison: None Lung bases demonstrates bibasilar subsegmental atelectasis/scarring right greater than left. Also small right and tiny left incompletely visualized effusions. Right middle lobe 7 mm calcified granuloma. Heart not enlarged. Noncontrasted images are negative for pathologic visceral calcifications/calculi. Noncontrasted stomach and bowel loops appear nonobstructed. Appendectomy reported. Postcontrast images demonstrates normal visceral enhancement and renal excretion. Abnormal pericholecystic fluid without cholelithiasis or biliary distention. Additional tiny fluid in the pelvis that may or may not be related. No walled off fluid collection or free air. Remaining liver, pancreas, spleen, adrenal glands, kidneys, ureters, and bladder are unremarkable. Minimal aortic calcifications. No AAA or pathologic retroperitoneal lymphadenopathy. Osseous structures intact with mild/moderate degenerative changes throughout the thoracolumbar spine. 1 cm L4 bone cyst. Impression: 1. Incompletely visualized bibasilar effusions right greater than left without cardiomegaly. 2. Abnormal pericholecystic fluid without gallstones. Tiny pelvic free fluid may or may not be related. Gallbladder sonogram may yield further information. 3. Incidental right middle lobe calcified granuloma, multilevel degenerative spondylosis, and small L4 bone cyst. 4. Remaining CT abdomen/pelvis with and without contrast exam is negative.
--- NOTE | 2021-01-26 16:39 | XRAY ---
Indication: Nausea and vomiting. Abnormal CT abdomen/pelvis. Two-dimensional gallbladder sonogram performed. Comparison: None Gallbladder partially contracted without gallstones. There is gallbladder wall thickening measuring 3.6 mm and small pericholecystic fluid. Common bile duct measures 2 mm. No intrahepatic biliary distention. Remaining visualized liver, pancreas, and right kidney sonographically unremarkable. Right kidney measures 10.6 cm in length. Impression: Gallbladder wall thickening with pericholecystic fluid but no gallstones. Rule out acalculous cholecystitis.
[2021-01-26] MEDS ORDERED: TYLENOL 325 MG PO PRN (20:39)
[2021-01-26] MEDS: ROCEPHIN 1 Gm-D5w 50 ml Bag** 1 G/50 ML IVPB IV SCH (21:23)
[2021-01-27] MEDS: DUONEB 0.5-3 MG/3 ml Neb IH SCH ×3 (03:00→10:38)
[2021-01-27] MEDS: Sodium Chloride 0.9% 1000 ML 1,000 ML IV SCH (05:52)
[2021-01-27] MEDS: ADVAIR 250-50 DISKUS 14 DOSE IH SCH (08:03)
[2021-01-27] MEDS: solu-MEDROL 125 MG IV SCH (08:15)
[2021-01-27] MEDS: Toprol Xl 100 MG PO SCH (09:46)
[2021-01-27] MEDS: PROTONIX 40 MG IV IV SCH (09:46)
[2021-01-27] MEDS: ENOXAPARIN SODIUM SQ SCH (09:46)
--- NOTE | 2021-01-27 10:57 | CONS ---
CONSULT DATE: 01/26/2021 This patient was seen for Dr. Costa Guevara who is professor of public administration for our group today. He asked that I would see him right before I left from doing outpatient procedures. HISTORY: A 50 year-old gentleman with multiple medical problems including chronic obstructive pulmonary disease exacerbation and he also had some skin problems, itching and some lice and bed bugs per nursing staff. He has been treated at this point. They said he was getting close to going home but he had an episode of emesis and some vague abdominal complaints. He denies history of cirrhosis or liver problems in the past. PAST MEDICAL HISTORY: Bronchitis. Chronic obstructive pulmonary disease. Emphysema. History of pneumonia in the past. Osteoarthritis. Reflux. Anxiety. Depression. Hypertension. PAST SURGICAL HISTORY: No upper abdominal surgery in the past. Appendectomy in the past. Testicular surgery. Mole removed from chest. Collapsed lung with chest tube and removal in the past. Undescended testicle on the right. MEDICATIONS: Prior to admission include: Albuterol, fluticasone, metoprolol. ALLERGIES: ASPIRIN. ADHESIVE TAPE. FAMILY HISTORY: Negative in regards to this problem. SOCIAL HISTORY: Former smoker. Denies alcohol abuse. LAB DATA AND TESTS: His total bilirubin is 0.10, AST 53, ALT 52, alkaline phosphatase 43. White count 17. Ultrasound of gallbladder just slight thickening, a little bit of pericholecystic fluid, no gallstones in this gentleman with significant lung disease, respiratory issues. REVIEW OF SYSTEMS: Fourteen systems reviewed pertinent for chronic lung disease. He has multiple tattoos. PHYSICAL EXAMINATION: He is afebrile 98.1F earlier, blood pressure 130/60, pulse 81. GENERAL: A chronically ill gentleman. HEENT: Sclera nonicteric. NECK: No JVD. CHEST: Equal excursion. Respirations on oxygen nasal O2. CVS: Regular rhythm and pulse. ABDOMEN: Soft. No peritoneal signs. EXTREMITIES: No cyanosis. He has some skin problems from some bed bugs and lice but otherwise some itching. Otherwise he has got some tattoos. NEURO: Alert, moving extremities grossly symmetrically. IMPRESSION: He has vague abdominal complaints. He had some nausea earlier of unclear etiology. His liver function tests were okay. His ultrasound did not show any stones. It showed a little bit of gallbladder wall edema. Given his significant cardiopulmonary issues, I feel he definitely would warrant checking a HIDA before considering intervention regarding gallbladder and ideally it would be nice if he was doing better from pulmonary standpoint. Either way no emergent surgical intervention necessary at this point. I am seeing this patient for Dr. Costa Guevara. I recommend getting a HIDA scan. It is not available until here this week. If his pain and nausea improves, he can be released to do as an outpatient. If his respiratory situation fails to improve then he might need consideration of opinion from shelter director. Anesthesia might request pulmonary clearance prior to proceeding with any intervention should he end up needing surgical intervention down the road. At this time no emergent surgical intervention necessary, await HIDA scan results. Again, I am seeing this patient for Dr. Costa Guevara.
[2021-01-27 12:17] VITALS: BP 136/87; PULSE 89; O2SAT 98
--- NOTE | 2021-01-28 08:31 | PCM.DS ---
Discharge Summary Date of Admission: 01/25/21 08:10 Admitting Physician: DEVANG PENG Consults: Consults on Case 01/26/21 17:01 Consult Surgery ROUTINE Primary Care Provider: DEVANG PENG Allergies Allergies adhesive tape Adverse Reaction (Intermediate, Verified 01/23/21 17:52) Blisters aspirin Adverse Reaction (Intermediate, Verified 01/23/21 17:52) Shortness of Breath Hospital Summary - Hospital Course Hospital Course: Chief Complaint Diagnosis shortness of breath for 23 days Allergies Allergy/AdvReac Type Severity Reaction Status Date / Time adhesive tape AdvReac Intermediate Blisters Verified 01/23/21 17:52 aspirin AdvReac Intermediate Shortness Verified 01/23/21 17:52 of Breath Vital Signs (Last 24 hours) Temp Pulse Resp BP Pulse Ox 01/27/21 12:00 98.2 F 89 22 136/87 98 01/27/21 10:41 88 18 95 Home Medications Medication Instructions Recorded Confirmed Last Taken Type Metoprolol Succinate 100 mg 1 tab PO DAILY 01/23/21 01/23/21 01/23/21 History [Toprol Xl 100 MG] Methylprednisolone Packet 4 mg PO UD #1 packet 01/27/21 Unknown Rx [Medrol Dosepack] Current Medications Discontinued Medications Generic Name Dose Route Start Last Admin Trade Name Freq PRN Reason Stop Dose Admin Acetaminophen 650 mg 01/26/21 20:39 01/26/21 20:42 Tylenol 325 Mg PO 02/25/21 20:38 650 mg Q4H PRN PRN Administration PAIN AND/OR FEVER Albuterol Sulfate 2.5 mg 01/23/21 18:16 01/23/21 18:33 Proventil 2.5 Mg/3 Ml Neb IH 01/23/21 18:17 2.5 mg STAT ONE Administration Albuterol Sulfate Confirm 01/23/21 18:27 Proventil 2.5 Mg/3 Ml Neb Administered 01/23/21 18:28 Dose 2.5 mg IH .STK-MED ONE Albuterol Sulfate 2.5 mg 01/24/21 01:15 Proventil 2.5 Mg/3 Ml Neb IH 02/23/21 01:14 Q4H PRN PRN SHORTNESS OF BREATH/WHEEZING Albuterol/Ipratropium 3 ml 01/23/21 23:00 01/27/21 10:38 Duoneb 0.5-3 Mg/3 Ml Neb IH 02/22/21 22:59 3 ml Q4HRT ANH Administration Enoxaparin Sodium 40 mg 01/25/21 10:00 01/27/21 09:46 Enoxaparin Sodium SQ 02/24/21 09:59 40 mg DAILY ANH Administration Sodium Chloride 1,000 mls @ 999 mls/hr 01/23/21 18:16 01/23/21 20:16 Sodium Chloride 0.9% 1000 Ml IV 01/23/21 19:16 Infused .Q1H1M STA Infusion Ceftriaxone Sodium/Dextrose 1 g in 50 mls @ 100 mls/hr 01/23/21 18:16 01/23/21 20:16 Rocephin 1 Gm-D5w 50 Ml Bag IV 01/23/21 18:45 Infused STAT STA Infusion Sodium Chloride Confirm 01/23/21 18:55 Sodium Chloride 0.9% 1000 Ml Administered 01/23/21 18:56 Dose 1,000 mls @ ud .ROUTE .STK-MED ONE Ceftriaxone Sodium/Dextrose Confirm 01/23/21 18:55 Rocephin 1 Gm-D5w 50 Ml Bag Administered 01/23/21 18:56 Dose 1 g in 50 mls @ ud IV .STK-MED ONE Sodium Chloride 1,000 mls @ 125 mls/hr 01/23/21 21:15 01/27/21 05:52 Sodium Chloride 0.9% 1000 Ml IV 02/22/21 21:14 125 mls/hr .Q8H ANH Administration Ceftriaxone Sodium/Dextrose 1 g in 50 mls @ 100 mls/hr 01/24/21 22:00 01/26/21 21:23 Rocephin 1 Gm-D5w 50 Ml Bag IV 01/28/21 21:59 100 mls/hr Q24H22 ANH Administration Methylprednisolone Sodium Succinate 125 mg 01/23/21 18:16 01/23/21 19:09 Solu-Medrol 125 Mg IV 01/23/21 18:17 125 mg STAT ONE Administration Methylprednisolone Sodium Succinate Confirm 01/23/21 18:55 Solu-Medrol 125 Mg Administered 01/23/21 18:56 Dose 125 mg .ROUTE .STK-MED ONE Methylprednisolone Sodium Succinate 80 mg 01/23/21 21:30 01/24/21 01:26 Solu-Medrol 125 Mg IV 02/22/21 21:29 Not Given Q12H ANH Methylprednisolone Sodium Succinate 80 mg 01/24/21 08:00 01/27/21 08:15 Solu-Medrol 125 Mg IV 02/23/21 07:59 80 mg Q12H ANH Administration Metoprolol Succinate 100 mg 01/24/21 10:00 01/27/21 09:46 Toprol Xl 100 Mg PO 02/23/21 09:59 100 mg DAILY ANH Administration Ondansetron HCl 4 mg 01/26/21 08:18 01/26/21 21:28 Zofran 4 Mg/2 Ml Vial IV 02/25/21 08:17 4 mg Q4H PRN PRN Administration NAUSEA/VOMITING Pantoprazole Sodium 40 mg 01/26/21 11:30 01/27/21 09:46 Protonix 40 Mg Iv IV 02/25/21 11:29 40 mg Q24H10 ANH Administration Pyrethrins/Piperonyl Butoxide 118 ml 01/24/21 08:15 01/24/21 08:35 Lice Killing Shampoo TP 01/24/21 08:16 118 ml NOW ONE Administration Fluticasone/Salmeterol 1 each 01/24/21 07:00 01/27/21 08:03 Advair 250-50 Diskus 14 Dose IH 02/23/21 06:59 1 each BIDRT ANH Administration Intake & Output (Last 24 hours) 01/25/21 01/26/21 01/27/21 01/28/21 11:59 11:59 11:59 11:59 Intake Total 4857 3667 3509 Output Total 2300 150 1300 Balance 2557 3517 2209 Weight 64.5 kg 70.3 kg 72.9 kg Microbiology Results (Last 24 hours) 01/23/21 18:54 Blood Blood Culture Gram Stain - Final Not Reportable 01/23/21 18:54 Blood Blood Culture - Final NO GROWTH 01/23/21 18:35 Blood Blood Culture Gram Stain - Final Not Reportable 01/23/21 18:35 Blood Blood Culture - Final NO GROWTH Patient Care Notes (Last 24 hours) 01/27/21 15:20 Nursing Note by Samanta Ruiz Spoke with patient's mother about discharge teaching, upcoming HIDA scan on , and Oxygen therapy. Verbalizes understanding. States they will draft roller picker prescription from [facility]. Patient leaving with her on discharge. Verbalizes understanding of discharge teaching. States he has no further questions at this time Initialized on 01/27/21 15:20 - END OF NOTE 01/27/21 14:06 Case Management Note by Priscila Mcdonnell [facility] REPORTS THEY HAVE ALL OF PATIENT'S DOCUMENTS FOR OXYGEN SET UP. SEND PATIENT HOME WITH PORTABLE TANK FROM [facility] THEN PATIENT TO CALL WHEN HE GETS HOME TO HAVE HOME CONCENTRATOR DELIVERED. PRIMARY RN NOTIFIED AND THIS INFO PLACED IN DC INSTRUCTIONS Initialized on 01/27/21 14:06 - END OF NOTE 01/27/21 12:11 Nursing Note by Samanta Ruiz patient preferred pharmacy is [facility]. Medrol dose pack Rx called to this pharmacy Initialized on 01/27/21 12:11 - END OF NOTE 01/27/21 11:24 Case Management Note by Priscila Mcdonnell REFERRAL FAXED TO [facility] FOR HOME OXYGEN AT THIS TIME Initialized on 01/27/21 11:24 - END OF NOTE 01/27/21 10:46 Case Management Note by Priscila Mcdonnell PER DR. SEGURA REQUEST- ARRANGED FOR [facility] FOR HIDA SCAN ON TUESDAY WITH [facility]. [facility]IDE #[id number]. PATIENT'S MOTHER MAY ALSO BE ABLE TO BRING HIM. HE WAS INSTRUCTED TO CALL AND CANCEL HIS RIDE IF THIS IS THE CASE. RADIOLOGY GIVEN # FOR [facility] FOR PATIENT TO CALL AFTER APPOINTMENT FOR [facility] HOME IF MEDICAID TRANSPORT IS USED. PATIENT GIVEN PULSE OX BY RT AND INSTRUCTED ON HOW TO USE IT. WILL SEND REFERRAL TO [facility] FOR HOME OXYGEN- AWAITING MD SIGNATURE. PATIENT ALSO GIVEN HANDOUTS ON BED BUGS AND TRANSPORTATION OPTIONS IN OUR AREA. HE DENIES ANY OTHER NEEDS AT THIS REGARDING DC. HE PLANS TO RETURN HOME TO HIS PRIOR LEVEL OF FUNCTIONING AT TIME OF DC Initialized on 01/27/21 10:46 - END OF NOTE 01/27/21 08:54 Respiratory Note by Arlin Aguilera 0850 ROOM AIR RESTING SPO2 87%. PLACED ON N/C 2LPM SPO2 97% AT REST Initialized on 01/27/21 08:54 - END OF NOTE - Vitals & Intake/Output Vital Signs: Vital Signs Temperature 98.2 F 01/27/21 12:00 Pulse Rate 89 01/27/21 12:00 Respiratory Rate 22 01/27/21 12:00 Blood Pressure 136/87 01/27/21 12:00 O2 Sat by Pulse Oximetry 98 01/27/21 12:00 Intake & Output: Intake & Output 01/25/21 01/26/21 01/27/21 01/28/21 11:59 11:59 11:59 11:59 Intake Total 4857 3667 3509 Output Total 2300 150 1300 Balance 2557 3517 2209 Weight 64.5 kg 70.3 kg 72.9 kg - Lab Result Diagrams: 01/26/21 05:13 01/26/21 05:13 Micro Results-Entire Visit: Microbiology 01/23/21 18:54 Blood Culture Gram Stain - Final Blood Not Reportable Blood Culture - Final NO GROWTH 01/23/21 18:35 Blood Culture Gram Stain - Final Blood Not Reportable Blood Culture - Final NO GROWTH - Radiology Exams Ordered Rad Exams-Entire Visit: Radiology Procedures Category Date Time Status ABDOMEN AND PELVIS W&WO CONTRA [CT] Urgent Exams 01/26/21 11:20 Completed Ultrasound Gallbladder [GALLBLADDER] [US] Stat Exams 01/26/21 15:59 Completed - Procedures and Test Procedures and Tests throughout Hospitalization: Therapy Orders & Screens 01/23/21 19:27 Respiratory Therapy Assessment DAILY Comment: 01/23/21 21:01 Oxygen Nasal Cannula 2 lpm Comment: 01/23/21 21:03 Respiratory Therapy Consult ROUTINE Comment: Reason For Exam: 01/24/21 00:51 RT Screen per Nursing Assess ONCE Comment: Protocol Order Physician Instructions: Greater than 3 points order RT Admission Screen Reason For Exam: Triggered on Admission Diagnosis: COPD exas Diagnosis: COPD exas Pneumonia: No Home O2: No Asthma: Yes CHF: No Home CPAP/BIPAP: No Home Nebs/MDI: Yes Total Points: 9 01/24/21 07:00 Respiratory MDI BID Comment: MELANY 250/50 1 PUFF BID Diagnosis: COPD EXACERBATION 01/26/21 11:01 Flutter Therapy UD Comment: Diagnosis: shortness of breath for 23 days Discharge Exam General Appearance: no apparent distress, alert Neurologic Exam: alert, oriented x 3, cooperative, normal mood/affect, nml cerebellar function, sensation nml, No motor deficits Eye Exam: PERRL, EOMI, eyes nml inspection Ears, Nose, Throat Exam: normal ENT inspection, pharynx normal, moist mucous membranes Neck Exam: normal inspection, non-tender, supple, full range of motion Respiratory Exam: normal breath sounds, lungs clear, No respiratory distress Cardiovascular Exam: regular rate/rhythm, normal heart sounds Gastrointestinal/Abdomen Exam: soft, No tenderness, No mass Male Genitalia Exam: deferred Rectal Exam: deferred Back Exam: normal inspection, normal range of motion, No CVA tenderness, No vertebral tenderness Extremity Exam: normal inspection, normal range of motion Skin Exam: normal color, warm, dry Final Diagnosis/Problem List - Final Discharge Diagnosis/Problem (1) COPD exacerbation Status: Resolved Code(s): J44.1 - CHRONIC OBSTRUCTIVE PULMONARY DISEASE W (AC [place]) EXACERBATION (2) Chest wall deformity Status: Chronic Code(s): M95.4 - ACQUIRED DEFORMITY OF CHEST AND RIB (3) Infestation by bed bug Status: Resolved Code(s): B88.8 - OTHER SPECIFIED INFESTATIONS - Discharge Discharge Date: 01/27/21 Disposition: Home, Self-Care Condition: Stable Prescriptions: New Methylprednisolone Packet [Medrol Dosepack] 4 mg PO UD #1 packet Continue Albuterol Sulfate [Proair Respiclick] 90 mcg IH BID PRN PRN Reason: Shortness Of Breath Albuterol 2.5 mg/3 ml Neb [Proventil 2.5 mg/3 ml Neb] 2.5 mg NEB QID PRN PRN Reason: Shortness Of Breath Fluticasone/Umeclidin/Vilanter [Trelegy Ellipta 100-62.5-25] 1 each IH DAILY Metoprolol Succinate 100 mg [Toprol Xl 100 MG] 1 tab PO DAILY Instructions: Oxygen Therapy, Adult (DC), Exacerbation of COPD (DC) Additional Instructions: YOU ARE SCHEDULED FOR A HIDA SCAN AT [facility] AT 1100. MEDICAID TRANSPORT WILL PICK YOU UP AT 10:10 THAT MORNING AND BRING YOU TO [facility]. AFTER YOUR APPOINTMENT-USE THE HOSPITAL PHONE TO CALL [facility] AT TO LET THEM KNOW YOU ARE READY TO RETURN HOME AND THEY WILL ARRANGE IT FOR YOU. YOU CAN NOT HAVE ANYTHING TO EAT OR DRINK AFTER MIDNIGHT ON 01/29/21. DO NOT TAKE ANY NARCOTICS 6-8 HRS BEFORE YOUR TEST. YOUR CONFIRMATION NUMBER FOR [facility]IDE IS [id number]. *IF YOUR MOTHER ENDS UP TAKING YOU PLEASE CALL [facility] AT TO CANCEL YOUR TRIP* YOU NEED TO WEAR 2L/NC AT ALL TIMES. CALL [facility] AT [phone] WHEN YOU GET HOME SO THEY CAN DELIVER YOUR HOME CONCENTRATOR REFERRAL WAS SENT TO [facility] TO SEE IF THEY CAN PROVIDE ANY HELP WITH THE BEDBUGS Follow up with: DEVANG PENG MD [Primary Care Provider] - 02/03/21 3:30 pm
== END 2021-01-27 15:35 | disposition home or self-care (01) | DRG 192 ==
LOC: ED 17:37 → MED SURG 23:11 → OBSVTOIN 01-25 08:10
PROVIDERS: ADMIT General Practice; ATTEND General Practice
DX: J44.1 Chronic obstructive pulmonary disease with (acute) exacerbation (principal); Z79.899 Other long term (current) drug therapy; I10 Essential (primary) hypertension; M95.4 Acquired deformity of chest and rib; B88.8 Other specified infestations; Z20.828 Contact with and (suspected) exposure to other viral communicable diseases; R10.9 Unspecified abdominal pain; R11.2 Nausea with vomiting, unspecified
CPT/HCPCS: 0241U; 36000; 36415; 71045; 74178; 76705; 80048; 80053; 81001; 83605; 83735; 83880; 84484; 85025; 85027; 85379; 85610; 85730; 87040; 87400; 93005; 93041; 94640; 94667; 94760; 96360; 96365; 96374; 99285; G0378; J0696; J1650; J2405; J2930; J7609; A9270-GY

== ENCOUNTER 2021-08-27 11:09 | Emergency (ER) | payer MEDICARE ==
--- NOTE | 2021-08-27 11:16 | ERPHSYRPT ---
- History of Present Illness Time Seen by Provider: 08/27/21 11:16 Source: patient Exam Limitations: no limitations Physician History: This is a 51-year-old white male patient who presents with left posterior lateral chest pain in the site of a prior chest tube. Patient states the pain began worsening yesterday and it was concerning to him because he felt that this may be a sign that he is having recurrent pneumothorax which was the reason he had the chest tube placed in the past. He has not had a cough. He is not short of breath. He does not have a fever. He had some mild wheezing upon arrival to the emergency room. He has no chest pain. He had no nausea vomiting or diarrhea. Patient has history of chronic recurring bronchitis, recurrent pneumonias, COPD emphysema and asthma. In addition, he has a history of anxiety. Timing/Duration: yesterday Severity: mild (To moderate) Associated Symptoms: denies symptoms Allergies/Adverse Reactions: adhesive tape Adverse Reaction (Intermediate, Verified 08/27/21 11:30) Blisters aspirin Adverse Reaction (Intermediate, Verified 08/27/21 11:30) Shortness of Breath Home Medications: Albuterol 2.5 mg/3 ml Neb [Proventil 2.5 mg/3 ml Neb] 2.5 mg NEB QID PRN 06/14/19 [History] Albuterol Sulfate [Proair Respiclick] 90 mcg IH BID PRN 06/14/19 [History] Fluticasone/Umeclidin/Vilanter [Trelegy Ellipta 100-62.5-25] 1 each IH DAILY 09/28/19 [History] Metoprolol Succinate 100 mg [Toprol Xl 100 MG] 1 tab PO DAILY 01/23/21 [History] Hx Tetanus, Diphtheria Vaccination/Date Given: Yes Hx Influenza Vaccination/Date Given: Yes Hx Pneumococcal Vaccination/Date Given: No Travel Risk - International Travel Have you traveled outside of the country in past 3 weeks: No - Coronavirus Screening Are you exhibiting any of the following symptoms?: No Close contact with a COVID-19 positive Pt in past 14-21 Days: No - Vaccine Status Have you recieved a Covid-19 vaccination: Yes 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[employer] - Review of Systems Constitutional: No Symptoms Eyes: No Symptoms Ears, Nose, & Throat: No Symptoms Respiratory: Cough (Chronic), Wheezing (Chronic), No Dyspnea Cardiac: No Symptoms Abdominal/Gastrointestinal: No Symptoms Genitourinary Symptoms: No Symptoms Musculoskeletal: No Symptoms Skin: No Symptoms Neurological: No Symptoms Psychological: No Symptoms Endocrine: No Symptoms Hematologic/Lymphatic: No Symptoms Immunological/Allergic: No Symptoms All Other Systems: Reviewed and Negative - Past Medical History Pertinent Past Medical History: Yes Neurological History: No Pertinent History ENT History: No Pertinent History Cardiac History: Hypertension Respiratory History: Bronchitis, COPD, Emphysema, Pneumonia, Other Endocrine Medical History: No Pertinent History Musculoskeletal History: Osteoarthritis GI Medical History: GERD History: No Pertinent History Psycho-Social History: Anxiety, Depression Male Reproductive Disorders: No Pertinent History Other Medical History: asthma - Past Surgical History Past Surgical History: Yes Neuro Surgical History: No Pertinent History Cardiac: No Pertinent History Respiratory: Chest Surgery Gastrointestinal: Appendectomy Genitourinary: No Pertinent History Musculoskeletal: No Pertinent History Male Surgical History: Testicular Surgery Other Surgical History: mole removed from chest, collapsed lung with chest tube and removal (suspected suture left in place), undescended testicle right side, - Social History Smoking Status: Former smoker Exposure to second hand smoke: No Drug Use: none Patient Lives Alone: Yes - Nursing Vital Signs Nursing Vital Signs: Initial Vital Signs Temperature 97.3 F 08/27/21 11:16 Pulse Rate 104 H 08/27/21 11:16 Blood Pressure 163/82 08/27/21 11:16 O2 Sat by Pulse Oximetry 95 08/27/21 11:16 Pain Scale Pain Intensity 5 - Physical Exam General Appearance: no apparent distress, alert, anxiety Eye Exam: PERRL/EOMI, eyes nml inspection Ears, Nose, Throat Exam: normal ENT inspection, moist mucous membranes Neck Exam: normal inspection, non-tender, supple, full range of motion Respiratory Exam: normal breath sounds, lungs clear, airway intact, No chest tenderness, No respiratory distress Cardiovascular Exam: regular rate/rhythm, normal heart sounds, normal peripheral pulses Gastrointestinal/Abdomen Exam: soft, normal bowel sounds, No tenderness Rectal Exam: not done Back Exam: normal inspection, normal range of motion, No CVA tenderness, No vertebral tenderness Extremity Exam: normal inspection, normal range of motion, pelvis stable Neurologic Exam: alert, oriented x 3, cooperative, insurance account manager II-XII nml as tested, normal mood/affect, nml cerebellar function, nml station & gait, sensation nml Skin Exam: normal color, warm, dry Lymphatic Exam: No adenopathy SpO2 Interpretation: normal O2 Delivery: Room Air - Course Nursing assessment & vital signs reviewed: Yes Ordered Tests: Active Orders 24 hr Category Date Time Status CHEST 2 VIEWS (PA AND LAT) Stat Exams 08/27/21 11:34 Completed Respiratory Therapy Assessment DAILY RT 08/27/21 11:42 Active Medication Summary Discontinued Medications Generic Name Dose Route Start Last Admin Trade Name Mikeq PRN Reason Stop Dose Admin Albuterol/Ipratropium Confirm 08/27/21 11:41 Ipratropium/Albuterol Sulfate 3 Ml Ampul.Neb Administered 08/27/21 11:42 Dose 3 ml IH .STK-MED ONE Albuterol/Ipratropium 3 ml 08/27/21 11:41 08/27/21 11:44 Ipratropium/Albuterol Sulfate 3 Ml Ampul.Neb IH 08/27/21 11:42 3 ml STAT ONE Administration - Progress Progress Note: 08/27/21 12:39 Chest x-ray shows nonacute findings. No evidence of any acute infiltrate. Counseled pt/family regarding: diagnosis, need for follow-up, rad results - Departure Departure Disposition: Home Clinical Impression: Rib pain on left side Condition: Stable Critical Care Time: No Referrals: DEVANG PENG MD [Primary Care Provider] - Follow up/PCP as directed Additional Instructions: Take your medication as prescribed. Follow-up with your primary care physician for persistent symptoms. Prescriptions: Hydrocodone/APAP 5/325 [[place] 5/325 mg] 1 each PO Q8H PRN PRN #6 tablet M DD 3 PRN Reason: Pain
[2021-08-27 11:30] VITALS: BP 163/82
[2021-08-27] MEDS ORDERED: DUONEB 0.5-3 MG/3 ml Neb IH ONE ×2 (11:41)
[2021-08-27 11:48] VITALS: PULSE 89; O2SAT 96
--- NOTE | 2021-08-27 12:00 | XRAY ---
Indication: Left chest pain. Comparison: April 23, 2021. PA/lateral chest unchanged again demonstrating left lung postoperative changes. No focal infiltrate, evaluation, large effusion, or pneumothorax. Heart is not enlarged. Bony thorax intact again with old left rib fractures and pectus excavatum deformity. Impression: Continued nonacute chest with chronic features.
== END 2021-08-27 12:58 | disposition home or self-care (01) ==
LOC: ED 11:09
DX: R07.81 Pleurodynia (principal); R06.2 Wheezing; J42 Unspecified chronic bronchitis; J43.9 Emphysema, unspecified; Z79.891 Long term (current) use of opiate analgesic
CPT/HCPCS: 71046; 94640; 99283; A9270-GY

== ENCOUNTER 2021-09-27 12:45 | Observation (INO) | payer MEDICARE ==
[2021-09-27] MEDS ORDERED: Sodium Chloride 0.9% 1000 ML 1,000 ML IV STA (12:52)
[2021-09-27] MEDS ORDERED: solu-MEDROL 125 MG, Sterile H2O 10 ml 2 ML IV ONE ×2 (12:52)
[2021-09-27] MEDS ORDERED: Sodium Chloride 0.9% 1000 ML 1,000 ML ONE (13:52)
[2021-09-27] MEDS ORDERED: Sterile H2O 10 ml IJ ONE (13:52)
[2021-09-27] MEDS ORDERED: solu-MEDROL ONE (13:52)
[2021-09-27] MEDS ORDERED: NORCO 5/325 MG PO ONE (13:59)
[2021-09-27 14:07] LABS: INR 0.97 (0.8-3.0); PROTIME 11.4 SECONDS (9.4-12.5)
[2021-09-27 14:08] LABS: Hematocrit 45.7 % (42-50); Hemoglobin 15.3 gm/dl (12.5-18.0); Mean Cell Volume 94.6 fl (78-100); Mean Corpuscular Hemoglobin 31.7 pg (26-32); Mean Corpuscular Hgb Concent. 33.5 g/dl (32-36); Mean Platelet Volume 9.2 fl (7.5-11.0); Platelet Count 295 K/mm3 (150-450); Red Blood Count 4.83 M/mm3 (4.1-5.6); Red Cell Distribution Width 12.5 % (11.5-14.0); White Blood Count 10.2 K/mm3 (4.0-10.5)
[2021-09-27] MEDS ORDERED: NORCO 5/325 MG ONE (14:08)
[2021-09-27 14:25] LABS: ALBUMIN 4.2 g/dL (3.5-5.0); ALKALINE PHOSPHATASE 57 U/L (38-126); ANION GAP 11.1 MEQ/L (5-15); BLOOD UREA NITROGEN 16 mg/dL (9-20); CHLORIDE 100 mmol/L (98-107); Carbon Dioxide 32 mmol/L (22-30); Creatinine 1 0.73 mg/dL (0.66-1.25); EST GLOMERULAR FILTRATION RATE > 60.0 ML/MIN; Glucose 87 mg/dL (74-106); MAGNESIUM 2.1 mg/dL (1.6-2.3); NT PRO BNP 55.4 pg/mL (0-900); SGOT/AST 37 U/L (17-59); SGPT/ALT 26 U/L (0-50); SODIUM 139 mmol/L (137-145); Total Protein 7.5 g/dL (6.3-8.2)
[2021-09-27 14:32] LABS: D-DIMER QUANTITATIVE < 215 ng/mL (215-500)
--- NOTE | 2021-09-27 15:24 | ERPHSYRPT ---
- History of Present Illness Time Seen by Provider: 09/27/21 12:50 Source: patient Exam Limitations: no limitations Patient Subjective Stated Complaint: pt reports not feeling well for one week with a cough, states that he has COPD and last evening started feeling short of breath. Triage Nursing Assessment: pt is aox3, short of breath on arrival, audible wheezes, afebrile, pupils perrl, cap refill < 3 seconds, radial pulses strong and equal, pt skin pink warm dry. Physician History: Patient is a 51-year-old white male with longstanding COPD who presents with increasing shortness of breath wheezing x1 week. Last night his lungs seem to close up on him and he complained of increasing dyspnea became very wheezy had a headache no nausea vomiting but some diarrhea taste and smell were okay. Timing/Duration: week(s) (1) Activities at Onset: none Severity of Dyspnea-Max: severe Severity of Dyspnea-Current: moderate Possible Cause: frequent episodes Modifying Factors: Improves With: activity, coughing, oxygen Associated Symptoms: cough, fever, wheezing Allergies/Adverse Reactions: adhesive tape Adverse Reaction (Intermediate, Verified 09/27/21 13:13) Blisters aspirin Adverse Reaction (Intermediate, Verified 09/27/21 13:13) Shortness of Breath Home Medications: Albuterol 2.5 mg/3 ml Neb [Proventil 2.5 mg/3 ml Neb] 2.5 mg NEB QID PRN 06/14/19 [History] Albuterol Sulfate [Proair Respiclick] 90 mcg IH BID PRN 06/14/19 [History] Fluticasone/Umeclidin/Vilanter [Trelegy Ellipta 100-62.5-25] 1 each IH DAILY 09/28/19 [History] Metoprolol Succinate 100 mg [Toprol Xl 100 MG] 1 tab PO DAILY 01/23/21 [History] Hx Tetanus, Diphtheria Vaccination/Date Given: Yes Hx Influenza Vaccination/Date Given: Yes Hx Pneumococcal Vaccination/Date Given: Yes Immunizations Up to Date: Yes Travel Risk - International Travel Have you traveled outside of the country in past 3 weeks: No - Coronavirus Screening Are you exhibiting any of the following symptoms?: Yes Symptoms: Cough: New Onset, Shortness of Breath - Vaccine Status Have you recieved a Covid-19 vaccination: 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[employer] - Review of Systems Constitutional: Fever Eyes: No Symptoms Ears, Nose, & Throat: No Symptoms Respiratory: Cough, Dyspnea, Dyspnea on Exertion (MONTEZ), Wheezing Cardiac: No Chest Pain, No Edema, No Syncope Abdominal/Gastrointestinal: Diarrhea, No Abdominal Pain, No Nausea, No Vomiting Genitourinary Symptoms: No Dysuria Musculoskeletal: No Back Pain, No Neck Pain Skin: Dryness (Chronic eczema both upper arms) Neurological: Headache Psychological: No Symptoms Endocrine: No Symptoms Hematologic/Lymphatic: No Symptoms Immunological/Allergic: No Symptoms All Other Systems: Reviewed and Negative - Past Medical History Pertinent Past Medical History: Yes Neurological History: No Pertinent History ENT History: No Pertinent History Cardiac History: Hypertension Respiratory History: Bronchitis, COPD, Emphysema, Pneumonia, Other Endocrine Medical History: No Pertinent History Musculoskeletal History: Osteoarthritis GI Medical History: GERD History: No Pertinent History Psycho-Social History: Anxiety, Depression Male Reproductive Disorders: No Pertinent History Other Medical History: asthma - Past Surgical History Past Surgical History: Yes Neuro Surgical History: No Pertinent History Cardiac: No Pertinent History Respiratory: Chest Surgery Gastrointestinal: Appendectomy Genitourinary: No Pertinent History Musculoskeletal: No Pertinent History Male Surgical History: Testicular Surgery Other Surgical History: mole removed from chest, collapsed lung with chest tube and removal (suspected suture left in place), undescended testicle right side, - Social History Smoking Status: Former smoker Exposure to second hand smoke: No Drug Use: none Patient Lives Alone: Yes - Nursing Vital Signs Nursing Vital Signs: Initial Vital Signs Temperature 98.5 F 09/27/21 12:46 Pulse Rate 90 09/27/21 12:46 Respiratory Rate 24 09/27/21 12:46 Blood Pressure 169/108 09/27/21 12:46 O2 Sat by Pulse Oximetry 93 L 09/27/21 12:46 Pain Scale Pain Intensity 0 - Physical Exam General Appearance: mild distress Eye Exam: PERRL/EOMI Ears, Nose, Throat Exam: hearing grossly normal, normal ENT inspection Neck Exam: normal inspection, non-tender, supple Respiratory Exam: respiratory distress, diminished breath sounds, crackles/rales, rhonchi, wheezing Cardiovascular/Chest Exam: normal heart sounds, regular rate/rhythm Abdominal/Gastrointestinal Exam: soft, normal bowel sounds Rectal Exam: deferred Extremity Exam: non-tender, normal range of motion, normal inspection, no calf tenderness, no pedal edema Neurologic Exam: alert, oriented x 3, cooperative, shipper/receiver II-XII nml as tested, sensation nml, No motor deficits Skin Exam: dry, rash SpO2 Interpretation: O2 applied SpO2: 100 O2 Delivery: Nasal Cannula - Course Nursing assessment & vital signs reviewed: Yes EKG Interpreted by Me: RATE, Sinus Rhythm (88), NORMAL AXIS, NORMAL INTERVALS, NORMAL QRS, NORMAL ST-T, Other (APCs) - Radiology Exams Chest X-ray Interpretation: Interpreted by me, Other (Chest x-ray shows chronic changes and a hint of a left lower lobe infiltrate) Ordered Tests: Active Orders 24 hr Category Date Time Status EKG-ER Only STAT Care 09/27/21 12:52 Active IV Insertion STAT Care 09/27/21 12:52 Active CHEST 1 VIEW (PORTABLE) Stat Exams 09/27/21 12:53 Taken BLOOD CULTURE Stat Lab 09/27/21 13:48 Received CBC W DIFF Stat Lab 09/27/21 13:25 Completed CMP Stat Lab 09/27/21 12:52 Completed D-DIMER QUANTITATIVE Stat Lab 09/27/21 13:25 Completed Lactic Acid Stat Lab 09/27/21 13:50 Completed MAGNESIUM Stat Lab 09/27/21 12:52 Completed Manual Differential NC Stat Lab 09/27/21 13:25 Completed NT PRO BNP Stat Lab 09/27/21 12:52 Completed PROTIME WITH INR Stat Lab 09/27/21 13:25 Completed TROPONIN Q3H Lab 09/27/21 13:25 Completed TROPONIN Q3H Lab 09/27/21 16:05 Received TROPONIN Q3H Lab 09/27/21 19:00 Ordered TROPONIN Q3H Lab 09/27/21 22:00 Ordered TROPONIN Q3H Lab 09/28/21 01:00 Ordered UA W/RFX UR CULTURE Stat Lab 09/27/21 12:53 Ordered Medication Summary Discontinued Medications Generic Name Dose Route Start Last Admin Trade Name Freq PRN Reason Stop Dose Admin Hydrocodone Bitart/Acetaminophen 1 tab 09/27/21 13:59 09/27/21 14:09 Hydrocodone/Apap 5/325 Mg Tablet PO 09/27/21 14:00 1 tab STAT ONE Administration Hydrocodone Bitart/Acetaminophen Confirm 09/27/21 14:08 Hydrocodone/Apap 5/325 Mg Tablet Administered 09/27/21 14:09 Dose 1 tab .ROUTE .STK-MED ONE Methylprednisolone Sodium 0 mg 09/27/21 12:52 09/27/21 13:54 Succinate 125 mg/ Sterile IV 09/27/21 12:53 125 mg Water 2 ml STAT ONE Administration Sodium Chloride 1,000 mls @ 999 mls/hr 09/27/21 12:52 09/27/21 15:08 Sodium Chloride 0.9% 1000 Ml IV 09/27/21 13:52 Infused .Q1H1M STA Infusion Sodium Chloride Confirm 09/27/21 13:52 Sodium Chloride 0.9% 1000 Ml Administered 09/27/21 13:53 Dose 1,000 mls @ ud .ROUTE .STK-MED ONE Methylprednisolone Sodium Succinate Confirm 09/27/21 13:52 Methylprednis Sod Succ 125 Mg/2 Ml Vial Administered 09/27/21 13:53 Dose 125 mg .ROUTE .STK-MED ONE Sterile Water Confirm 09/27/21 13:52 Water For Injection,Sterile 10 Ml Vial Administered 09/27/21 13:53 Dose 10 ml IJ .STK-MED ONE Lab/Rad Data: Laboratory Result Diagrams 09/27/21 13:25 09/27/21 12:52 Laboratory Results 09/27/21 09/27/21 09/27/21 Range/Units 14:30 13:50 13:25 WBC (4.0-10.5) K/mm3 RBC (4.1-5.6) M/mm3 Hgb (12.5-18.0) gm/dl Hct (42-50) % MCV (78-100) fl MCH (26-32) pg MCHC (32-36) g/dl RDW (11.5-14.0) % Plt Count (150-450) K/mm3 MPV (7.5-11.0) fl PT (9.4-12.5) SECONDS INR (0.8-3.0) D-Dimer (215-500) ng/mL Sodium (137-145) mmol/L Potassium (3.5-5.1) mmol/L Chloride (98-107) mmol/L Carbon Dioxide (22-30) mmol/L Anion Gap (5-15) MEQ/L BUN (9-20) mg/dL Creatinine (0.66-1.25) mg/dL Estimated GFR ML/MIN Glucose (74-106) mg/dL Lactic Acid 0.5 (0.4-2.0) Calcium (8.4-10.2) mg/dL Magnesium (1.6-2.3) mg/dL Total Bilirubin (0.2-1.3) mg/dL AST (17-59) U/L ALT (0-50) U/L Alkaline Phosphatase (38-126) U/L Troponin I < 0.012 (0.000-0.034) ng/mL NT-Pro-B Natriuret Pep (0-900) pg/mL Serum Total Protein (6.3-8.2) g/dL Albumin (3.5-5.0) g/dL Influenza Type A Ag NEGATIVE (NEGATIVE) Influenza Type B Ag NEGATIVE (NEGATIVE) RSV (PCR) NEGATIVE (Negative) SARS-CoV-2 (PCR) POSITIVE A (NEGATIVE) 09/27/21 09/27/21 09/27/21 Range/Units 13:25 13:25 12:52 WBC 10.2 (4.0-10.5) K/mm3 RBC 4.83 (4.1-5.6) M/mm3 Hgb 15.3 (12.5-18.0) gm/dl Hct 45.7 (42-50) % MCV 94.6 (78-100) fl MCH 31.7 (26-32) pg MCHC 33.5 (32-36) g/dl RDW 12.5 (11.5-14.0) % Plt Count 295 (150-450) K/mm3 MPV 9.2 (7.5-11.0) fl PT 11.4 (9.4-12.5) SECONDS INR 0.97 (0.8-3.0) D-Dimer < 215 L (215-500) ng/mL Sodium 139 (137-145) mmol/L Potassium 4.0 (3.5-5.1) mmol/L Chloride 100 (98-107) mmol/L Carbon Dioxide 32 H (22-30) mmol/L Anion Gap 11.1 (5-15) MEQ/L BUN 16 (9-20) mg/dL Creatinine 0.73 (0.66-1.25) mg/dL Estimated GFR > 60.0 ML/MIN Glucose 87 (74-106) mg/dL Lactic Acid (0.4-2.0) Calcium 9.0 (8.4-10.2) mg/dL Magnesium 2.1 (1.6-2.3) mg/dL Total Bilirubin 0.50 (0.2-1.3) mg/dL AST 37 (17-59) U/L ALT 26 (0-50) U/L Alkaline Phosphatase 57 (38-126) U/L Troponin I (0.000-0.034) ng/mL NT-Pro-B Natriuret Pep 55.4 (0-900) pg/mL Serum Total Protein 7.5 (6.3-8.2) g/dL Albumin 4.2 (3.5-5.0) g/dL Influenza Type A Ag (NEGATIVE) Influenza Type B Ag (NEGATIVE) RSV (PCR) (Negative) SARS-CoV-2 (PCR) (NEGATIVE) - Progress Air Movement: fair Blood Culture(s) Obtained: Yes Antibiotics given: Yes Discussed with Dr.: Other (Dr Juarez) Will see patient in: hospital (observation) - Departure Departure Disposition: Observation Clinical Impression: COVID-19, COPD (chronic obstructive pulmonary disease) Condition: Fair Critical Care Time: No Referrals: DEVANG PENG MD [Primary Care Provider] - Follow up/PCP as directed Instructions: Chronic Obstructive Pulmonary Disease
[2021-09-27 15:54] LABS: INFLUENZA A NEGATIVE (NEGATIVE); INFLUENZA B NEGATIVE (NEGATIVE); RESPIRATORY SYNCTIAL VIRUS NEGATIVE (Negative)
[2021-09-27 16:01] LABS: SARS-CoV-2 Xpert Express POSITIVE (NEGATIVE)
[2021-09-27] MEDS ORDERED: Ativan 2 MG/1 ML VIAL IV PRN (17:29)
[2021-09-27] MEDS ORDERED: Ativan 1 MG PO PRN (17:29)
[2021-09-27] MEDS ORDERED: Zofran 4 MG/2 ML VIAL IV PRN (17:29)
[2021-09-27] MEDS ORDERED: HYDROCODONE-CHLORPHEN ER SUSP PO PRN (17:29)
[2021-09-27] MEDS ORDERED: FEVERALL 650 MG PR PRN (17:29)
[2021-09-27] MEDS ORDERED: TYLENOL EXTRA STRENGTH 500 MG PO PRN (17:29)
[2021-09-27 17:50] LABS: Basophil 1 % (0.0-1.0); Eosinophil 7 % (0.00-3.0); Lymphocytes 16 % (24-44); Monocyte 4 % (0.0-12.0); Neutrophils 72 % (36.-66.); Platelet Estimate NORMAL (NORMAL); Total Cells Counted 100
[2021-09-27] MEDS ORDERED: REMDESIVIR 200 MG in Sodium Chloride 0.9% 250 ML 250 ML IV ONE (18:00)
[2021-09-27] MEDS: Sodium Chloride 0.9% 1000 ML 1,000 ML IV SCH (18:02)
[2021-09-27 18:47] LABS: Appearance CLEAR (CLEAR); Bilirubin NEGATIVE (NEGATIVE); Blood SMALL Ery/ul (0-5); Glucose NEGATIVE (NEGATIVE); Ketones TRACE (NEGATIVE); Leukocyte Esterase NEGATIVE (NEGATIVE); Mucus SLIGHT /HPF (NEGATIVE); Nitrite NEGATIVE (NEGATIVE); Protein,Urine Dip NEGATIVE (Negative); Specific Gravity 1.019 (1.005-1.025); Urobilinogen NEGATIVE mg/dL (0-1)
[2021-09-27] MEDS: OLUMIANT PO SCH (18:50)
--- NOTE | 2021-09-27 19:30 | XRAY ---
Indication: Cough and short of breath. Comparison: August 27, 2021. Portable chest demonstrates stable left lung postoperative changes. No focal infiltrate, consolidation, or large effusion. Heart not enlarged. Bony thorax intact again with old bilateral rib fractures. Impression: Continued nonacute chest with chronic features.
[2021-09-27] MEDS ORDERED: NORCO 5/325 MG PO PRN (20:57)
[2021-09-27] MEDS: ADVAIR/WIXELLA 250-50 DISKUS 14 DOSE IH SCH (21:05)
[2021-09-27] MEDS: VENTOLIN COMMON CANISTER IH SCH (21:05)
[2021-09-27] MEDS ORDERED: Toprol Xl 100 MG PO ONE (21:14)
[2021-09-27] MEDS: ROCEPHIN 1 Gm-D5w 50 ml Bag** 1 G/50 ML IVPB IV SCH (21:30)
[2021-09-28 03:06] LABS: Hematocrit 41.8 % (42-50); Hemoglobin 13.9 gm/dl (12.5-18.0); Mean Cell Volume 95.2 fl (78-100); Mean Corpuscular Hemoglobin 31.7 pg (26-32); Mean Corpuscular Hgb Concent. 33.3 g/dl (32-36); Mean Platelet Volume 8.9 fl (7.5-11.0); Platelet Count 314 K/mm3 (150-450); Red Blood Count 4.39 M/mm3 (4.1-5.6); Red Cell Distribution Width 12.1 % (11.5-14.0); White Blood Count 8.9 K/mm3 (4.0-10.5)
[2021-09-28 03:30] LABS: ALBUMIN 3.5 g/dL (3.5-5.0); ALKALINE PHOSPHATASE 49 U/L (38-126); ANION GAP 10.3 MEQ/L (5-15); BLOOD UREA NITROGEN 15 mg/dL (9-20); CHLORIDE 102 mmol/L (98-107); Calcium 8.4 mg/dL (8.4-10.2); Carbon Dioxide 29 mmol/L (22-30); Creatinine 1 0.77 mg/dL (0.66-1.25); EST GLOMERULAR FILTRATION RATE > 60.0 ML/MIN; Glucose 106 mg/dL (74-106); NT PRO BNP 121 pg/mL (0-900); Potassium 3.7 mmol/L (3.5-5.1); SGOT/AST 26 U/L (17-59); SGPT/ALT 21 U/L (0-50); SODIUM 138 mmol/L (137-145); Total Protein 6.4 g/dL (6.3-8.2)
[2021-09-28] MEDS: Sodium Chloride 0.9% 1000 ML 1,000 ML IV SCH (06:28)
[2021-09-28] MEDS: VENTOLIN COMMON CANISTER IH SCH ×2 (08:18→19:28)
[2021-09-28] MEDS: ADVAIR/WIXELLA 250-50 DISKUS 14 DOSE IH SCH ×2 (08:18→19:28)
[2021-09-28] MEDS: ENOXAPARIN SODIUM SQ SCH (09:32)
[2021-09-28] MEDS: DECADRON 10MG INJ. IV SCH (09:32)
[2021-09-28] MEDS: OLUMIANT PO SCH (09:32)
[2021-09-28] MEDS ORDERED: NORCO 5/325 MG PO PRN (11:30)
[2021-09-28] MEDS: Toprol Xl 100 MG PO SCH (12:05)
[2021-09-28] MEDS: BENTYL 20 MG PO SCH ×3 (12:05→21:48)
[2021-09-28] MEDS ORDERED: REMDESIVIR 100 MG in Sodium Chloride 0.9% 100 ML BAG 100 ML IV SCH (17:30)
[2021-09-28] MEDS: ROCEPHIN 1 Gm-D5w 50 ml Bag** 1 G/50 ML IVPB IV SCH (21:48)
[2021-09-28] MEDS ORDERED: Toprol Xl 100 MG PO ONE (22:00)
[2021-09-29] MEDS: Sodium Chloride 0.9% 1000 ML 1,000 ML IV SCH (03:33)
[2021-09-29 04:12] VITALS: BP 127/62
[2021-09-29 06:15] LABS: Hematocrit 37.7 % (42-50); Hemoglobin 12.3 gm/dl (12.5-18.0); Mean Corpuscular Hemoglobin 32.3 pg (26-32); Mean Corpuscular Hgb Concent. 32.6 g/dl (32-36); Mean Platelet Volume 9.3 fl (7.5-11.0); Platelet Count 260 K/mm3 (150-450); Red Blood Count 3.81 M/mm3 (4.1-5.6); Red Cell Distribution Width 12.5 % (11.5-14.0); White Blood Count 15.3 K/mm3 (4.0-10.5)
[2021-09-29 06:48] LABS: ALBUMIN 3.4 g/dL (3.5-5.0); ALKALINE PHOSPHATASE 43 U/L (38-126); ANION GAP 10.6 MEQ/L (5-15); BLOOD UREA NITROGEN 13 mg/dL (9-20); CHLORIDE 101 mmol/L (98-107); Calcium 8.3 mg/dL (8.4-10.2); Carbon Dioxide 32 mmol/L (22-30); Creatinine 1 0.76 mg/dL (0.66-1.25); EST GLOMERULAR FILTRATION RATE > 60.0 ML/MIN; Glucose 100 mg/dL (74-106); Potassium 3.6 mmol/L (3.5-5.1); SGOT/AST 27 U/L (17-59); SGPT/ALT 18 U/L (0-50); SODIUM 140 mmol/L (137-145)
[2021-09-29] MEDS: ADVAIR/WIXELLA 250-50 DISKUS 14 DOSE IH SCH (07:17)
[2021-09-29] MEDS: VENTOLIN COMMON CANISTER IH SCH (07:17)
[2021-09-29] MEDS: BENTYL 20 MG PO SCH ×2 (08:04→11:09)
[2021-09-29] MEDS: ENOXAPARIN SODIUM SQ SCH (08:05)
[2021-09-29] MEDS: DECADRON 10MG INJ. IV SCH (08:05)
[2021-09-29] MEDS: OLUMIANT PO SCH (08:05)
[2021-09-29] MEDS: Toprol Xl 100 MG PO SCH (08:06)
--- NOTE | 2021-09-29 09:39 | HP ---
CHIEF COMPLAINT: Cough, increasing shortness of breath. HISTORY OF PRESENT ILLNESS: The patient to the emergency room and was hypoxic, 93% on 3 liters. He was admitted because of hypoxia. No new infiltrates on his chest x-ray. Normal white count. Temperature came down to normal overnight. He is really not expressive. He must have rather severe depression, anxiety. He is not willing to give me any history today. His D-dimer is only 230. MEDICATIONS: Home medications include: Vicodin 5-325 mg 1 every 4 hours PRN, Albuterol 2 puffs every 4 hours PRN, Trelegy Ellipta 1 puff q.d., Bentyl 10 mg daily, metoprolol succinate 100 mg q.d. ALLERGIES: ASPIRIN. ADHESIVE TAPE. PAST MEDICAL HISTORY: Hypertension, bronchitis, chronic obstructive pulmonary disease, emphysema, pneumonia, osteoarthritis, gastroesophageal reflux disease, severe anxiety and depression. PAST SURGICAL HISTORY: Appendectomy. Some type of chest surgery which I think was chest tube. Testicular surgery. He states he had a mole removed from his chest and lung collapse with chest tube and removal. Undescended right testicle. PHYSICAL EXAMINATION: The patient is ill-kept, very quiet man does not answer questions much. VITAL SIGNS: Temperature 98F, pulse 80, respirations 22, blood pressure 160/70. HEENT: Pupils equal and reactive to light. Seems to hear. NECK: Supple without adenopathy. CHEST: Few wheezes. CVS: No murmurs or gallops. ABDOMEN: Soft. No tenderness or organomegaly. Decreased bowel sounds. IMPRESSION: The patient has COVID pneumonia. PLAN: The patient will be given Remdesivir, Decadron. He is presently vomiting and will treat him with some Zofran. If he is better tomorrow can probably go home.
[2021-09-29 14:15] VITALS: PULSE 75; O2SAT 92
--- NOTE | 2021-10-01 16:59 | PCM.DS ---
Discharge Summary Date of Admission: 09/27/21 17:20 Admitting Physician: JENNIFER MCPHERSON Primary Care Provider: DEVANG PENG Allergies Allergies adhesive tape Adverse Reaction (Intermediate, Verified 09/27/21 13:13) Blisters aspirin Adverse Reaction (Intermediate, Verified 09/27/21 13:13) Shortness of Breath Hospital Summary - Hospital Course Hospital Course: Chief Complaint Diagnosis Covid Allergies Allergy/AdvReac Type Severity Reaction Status Date / Time adhesive tape AdvReac Intermediate Blisters Verified 09/27/21 13:13 aspirin AdvReac Intermediate Shortness Verified 09/27/21 13:13 of Breath Home Medications Medication Instructions Recorded Confirmed Last Taken Type Dicyclomine HCl 10 mg PO DAILY 09/27/21 09/27/21 09/26/21 History Current Medications Discontinued Medications Generic Name Dose Route Start Last Admin Trade Name Freq PRN Reason Stop Dose Admin Acetaminophen 500 - 1,000 mg 09/27/21 17:29 Acetaminophen 500 Mg Tablet PO 10/27/21 17:28 Q4H PRN PRN Temp > 100.4 Orally Acetaminophen 650 mg 09/27/21 17:29 Acetaminophen 650 Mg Supp.Rect AL 10/27/21 17:28 Q4H PRN PRN Temp > 100.4 Orally Hydrocodone Bitart/Acetaminophen 1 tab 09/27/21 13:59 09/27/21 14:09 Hydrocodone/Apap 5/325 Mg Tablet PO 09/27/21 14:00 1 tab STAT ONE Administration Hydrocodone Bitart/Acetaminophen Confirm 09/27/21 14:08 Hydrocodone/Apap 5/325 Mg Tablet Administered 09/27/21 14:09 Dose 1 tab .ROUTE .STK-MED ONE Hydrocodone Bitart/Acetaminophen 1 tab 09/27/21 20:57 Hydrocodone/Apap 5/325 Mg Tablet PO 10/02/21 20:56 Q4H PRN PRN PAIN Hydrocodone Bitart/Acetaminophen 1 tab 09/28/21 11:30 Hydrocodone/Apap 5/325 Mg Tablet PO 10/02/21 20:56 Q8H/PRN PRN PAIN Albuterol Sulfate 4 puff 09/27/21 19:00 09/29/21 07:17 Albuterol Common Canister Inhaler IH 10/27/21 18:59 4 puff BIDRT ANH Administration Baricitinib 4 mg 09/27/21 18:00 09/29/21 08:05 Baricitinib 2 Mg Tablet PO 10/10/21 10:01 4 mg DAILY ANH Administration Chlorphenir/Hydrocodone Polistirex 5 ml 09/27/21 17:29 Hydrocodone/Chlorphen P-Stirex 1 Ml Laurence.Er.12h PO 10/27/21 17:28 [id number] PRN COUGH Methylprednisolone Sodium 0 mg 09/27/21 12:52 09/27/21 13:54 Succinate 125 mg/ Sterile IV 09/27/21 12:53 125 mg Water 2 ml STAT ONE Administration Dexamethasone Sodium Phosphate 8 mg 09/28/21 10:00 09/29/21 08:05 Dexamethasone Sod Phosphate 10 Mg/Ml IV 10/08/21 09:59 8 mg DAILY ANH Administration Dicyclomine HCl 10 mg 09/28/21 11:30 09/29/21 11:09 Dicyclomine Hcl 20 Mg Tablet PO 10/28/21 11:29 10 mg ACHS ANH Administration Enoxaparin Sodium 40 mg 09/28/21 10:00 09/29/21 08:05 Enoxaparin Sodium 40 Mg/0.4 Ml Syringe SQ 10/28/21 09:59 40 mg DAILY ANH Administration Sodium Chloride 1,000 mls @ 999 mls/hr 09/27/21 12:52 09/27/21 15:08 Sodium Chloride 0.9% 1000 Ml IV 09/27/21 13:52 Infused .Q1H1M STA Infusion Sodium Chloride Confirm 09/27/21 13:52 Sodium Chloride 0.9% 1000 Ml Administered 09/27/21 13:53 Dose 1,000 mls @ ud .ROUTE .STK-MED ONE Sodium Chloride 1,000 mls @ 100 mls/hr 09/27/21 17:30 09/29/21 03:33 Sodium Chloride 0.9% 1000 Ml IV 10/27/21 17:29 100 mls/hr .Q10H ANH Administration Remdesivir 100 mg/ Sodium 100 mls @ 100 mls/hr 09/28/21 17:30 09/28/21 18:36 Chloride IV 10/01/21 18:29 100 mls/hr Q24H ANH Administration Remdesivir 200 mg/ Sodium 250 mls @ 125 mls/hr 09/27/21 18:00 09/27/21 18:02 Chloride IV 09/27/21 19:59 125 mls/hr ONCE ONE Administration Ceftriaxone Sodium/Dextrose 1 g in 50 mls @ 100 mls/hr 09/27/21 22:00 09/28/21 21:48 Rocephin 1 Gm-D5w 50 Ml Bag IV 09/30/21 21:59 100 mls/hr Q24H22 ANH Administration Lorazepam 1 mg 09/27/21 17:29 Lorazepam 2 Mg/1 Ml 2 Mg Vial IV 10/27/21 17:28 Q4H PRN PRN Anxiety/Sleep Lorazepam 1 mg 09/27/21 17:29 Lorazepam 1 Mg Tablet PO 10/27/21 17:28 Q4H PRN PRN Anxiety/Sleep Methylprednisolone Sodium Succinate Confirm 09/27/21 13:52 Methylprednis Sod Succ 125 Mg/2 Ml Vial Administered 09/27/21 13:53 Dose 125 mg .ROUTE .STK-MED ONE Metoprolol Succinate 100 mg 09/28/21 22:00 09/27/21 21:30 Metoprolol Succinate 100 Mg Tablet.Sa PO 09/28/21 22:01 100 mg DAILY ONE Administration Metoprolol Succinate Confirm 09/27/21 21:14 Metoprolol Succinate 100 Mg Tablet.Sa Administered 09/27/21 21:15 Dose 100 mg PO .STK-MED ONE Metoprolol Succinate 100 mg 09/28/21 12:00 09/29/21 08:06 Metoprolol Succinate 100 Mg Tablet.Sa PO 10/28/21 11:59 Not Given DAILY ANH Ondansetron HCl 4 mg 09/27/21 17:29 09/28/21 07:29 Ondansetron Hcl 4 Mg/2 Ml Vial IV 10/27/21 17:28 4 mg Q6H PRN PRN Administration NAUSEA/VOMITING Fluticasone/Salmeterol 1 each 09/27/21 19:00 09/29/21 07:17 Fluticasone/Salmeterol 250/50 Diskus IH 10/27/21 18:59 1 each BIDRT ANH Administration Sterile Water Confirm 09/27/21 13:52 Water For Injection,Sterile 10 Ml Vial Administered 09/27/21 13:53 Dose 10 ml IJ .STK-MED ONE Intake & Output (Last 24 hours) 09/29/21 09/30/21 10/01/21 10/02/21 11:59 11:59 11:59 11:59 Intake Total 3365 340 Output Total 975 900 Balance 2390 -560 - Vitals & Intake/Output Vital Signs: Vital Signs Temperature 97.7 F 09/29/21 14:00 Pulse Rate 75 09/29/21 14:00 Respiratory Rate 18 09/29/21 14:00 Blood Pressure 127/62 09/29/21 14:00 O2 Sat by Pulse Oximetry 92 L 09/29/21 14:00 Intake & Output: Intake & Output 09/29/21 09/30/21 10/01/21 10/02/21 11:59 11:59 11:59 11:59 Intake Total 3365 340 Output Total 975 900 Balance 2390 -560 - Lab Result Diagrams: 09/29/21 05:30 09/29/21 05:30 Micro Results-Entire Visit: Microbiology 09/27/21 13:25 Blood Culture - Preliminary Blood NO GROWTH TO DATE 09/27/21 13:48 Blood Culture - Preliminary Blood NO GROWTH TO DATE - Procedures and Test Procedures and Tests throughout Hospitalization: Therapy Orders & Screens 09/27/21 18:32 RT Screen per Nursing Assess ONCE Comment: Protocol Order Physician Instructions: Greater than 3 points order RT Admission Screen Reason For Exam: Triggered on Admission Diagnosis: Covid Diagnosis: Covid Pneumonia: No Home O2: Yes Asthma: No CHF: No Home CPAP/BIPAP: No Home Nebs/MDI: Yes Total Points: 10 09/27/21 18:57 Oxygen Nasal Cannula 2 lpm Comment: Diagnosis: Covid 09/27/21 18:58 Respiratory Therapy Assessment DAILY Comment: Diagnosis: Covid 09/27/21 19:00 Respiratory MDI BID Comment: Diagnosis: Covid Discharge Exam General Appearance: no apparent distress, alert Neurologic Exam: alert, oriented x 3, cooperative, normal mood/affect, nml cerebellar function, sensation nml, No motor deficits Eye Exam: PERRL, EOMI, eyes nml inspection Ears, Nose, Throat Exam: normal ENT inspection, pharynx normal, moist mucous membranes Neck Exam: normal inspection, non-tender, supple, full range of motion Respiratory Exam: normal breath sounds, lungs clear, No respiratory distress Cardiovascular Exam: regular rate/rhythm, normal heart sounds Gastrointestinal/Abdomen Exam: soft, No tenderness, No mass Male Genitalia Exam: deferred Rectal Exam: deferred Back Exam: normal inspection, normal range of motion, No CVA tenderness, No vertebral tenderness Extremity Exam: normal inspection, normal range of motion Skin Exam: normal color, warm, dry Final Diagnosis/Problem List - Final Discharge Diagnosis/Problem (1) COVID-19 Status: Acute Code(s): U07.1 - COVID-19 (2) COPD (chronic obstructive pulmonary disease) Status: Acute - Discharge Discharge Date: 09/29/21 Disposition: Home, Self-Care Condition: Stable Prescriptions: No Action Albuterol Sulfate [Proair Respiclick] 90 mcg IH BID PRN PRN Reason: Shortness Of Breath Albuterol 2.5 mg/3 ml Neb [Proventil 2.5 mg/3 ml Neb] 2.5 mg NEB QID PRN PRN Reason: Shortness Of Breath Fluticasone/Umeclidin/Vilanter [Trelegy Ellipta 100-62.5-25] 1 each IH DAILY Metoprolol Succinate 100 mg [Toprol Xl 100 MG] 1 tab PO DAILY Hydrocodone/APAP 5/325 [[place] 5/325 mg] 1 each PO Q8H PRN PRN #6 tablet MDD 3 PRN Reason: Pain Dicyclomine HCl 10 mg PO DAILY Instructions: Oxygen Therapy, Adult (DC), Coronavirus Disease 2019 (COVID-19) (DC), Pulse Oximetry Additional Instructions: CONTINUE WITH [facility] FOR AT HOME OXYGEN AND WEAR OXYGEN AT 2L PER N/C CONTINUE ISOLATION UNTIL 10/02/21 UNLESS YOU REMAIN SYMPTOMATIC. IF SYMPTOMS REMAIN CONTINUE TO ISOLATE UNTIL 10/07/21. FOLLOW UP WITH [facility]IMARY [facility] AFTER ISOLATION ENDS. Follow up with: DEVANG PENG MD [Primary Care Provider] - Forms: Discharge Instructions
== END 2021-09-29 16:00 | disposition home or self-care (01) ==
LOC: ED 12:45 → MED SURG 17:20
PROVIDERS: ADMIT Family Medicine; ATTEND Family Medicine
DX: U07.1 COVID-19 (principal); J12.82 Pneumonia due to coronavirus disease 2019; I10 Essential (primary) hypertension; J44.9 Chronic obstructive pulmonary disease, unspecified; Z79.899 Other long term (current) drug therapy; Z20.828 Contact with and (suspected) exposure to other viral communicable diseases
CPT/HCPCS: 0241U; 36000; 36415; 71045; 80053; 81001; 83605; 83735; 83880; 84484; 85025; 85027; 85379; 85610; 87040; 93005; 93268; 94640; 94762; 96360; 96374; 99285; G0378; J0248; J0696; J1100; J1650; J2405; J2930; A9270-GY

== ENCOUNTER 2021-10-24 11:08 | Emergency (ER) | payer MEDICARE ==
[2021-10-24] MEDS ORDERED: DUONEB 0.5-3 MG/3 ml Neb IH ONE ×2 (11:33→11:55)
[2021-10-24] MEDS ORDERED: solu-MEDROL 125 MG, Sterile H2O 10 ml 2 ML IV ONE ×2 (11:33)
[2021-10-24] MEDS ORDERED: solu-MEDROL ONE (11:46)
[2021-10-24] MEDS ORDERED: Sterile H2O 10 ml IJ ONE (11:46)
--- NOTE | 2021-10-24 12:00 | ERPHSYRPT ---
- History of Present Illness Time Seen by Provider: 10/24/21 11:19 Source: patient Exam Limitations: no limitations Patient Subjective Stated Complaint: Patient states he has been short of breath since he has recovered from Covid. States he becomes short of breath doing daily activities. Triage Nursing Assessment: Patient to ED with audible wheezes and shortness of breath. Patient is pale with increased WOb. Expiratory wheezes with diminished b reath sounds in bases. Physician History: 51 years old male with history of COPD, recent COVID-19 presented in the ER with chief complaint of increasing shortness of breath and wheezing for the last few days with progressive worsening. Also coughing up clear to yellow sputum mild to moderate in amount without any chest pain or palpitations. Denies any fever or chills. Patient has been using his neb treatments twice a day with no significant relief. Patient has audible wheezes on presentation with oxygen saturation of 99% and not tachypneic or tachycardic. Timing/Duration: week(s) (2), constant, gradual onset, worse Severity of Dyspnea-Max: moderate Severity of Dyspnea-Current: moderate Possible Cause: illness exposure Modifying Factors: Worsens With: coughing, exertion Associated Symptoms: cough, heaviness, productive cough, tightness Allergies/Adverse Reactions: adhesive tape Adverse Reaction (Intermediate, Verified 10/24/21 11:21) Blisters aspirin Adverse Reaction (Intermediate, Verified 10/24/21 11:21) Shortness of Breath Home Medications: Albuterol 2.5 mg/3 ml Neb [Proventil 2.5 mg/3 ml Neb] 2.5 mg NEB QID PRN 06/14/19 [History] Albuterol Sulfate [Proair Respiclick] 90 mcg IH BID PRN 06/14/19 [History] Fluticasone/Umeclidin/Vilanter [Trelegy Ellipta 100-62.5-25] 1 each IH DAILY 09/28/19 [History] Metoprolol Succinate 100 mg [Toprol Xl 100 MG] 1 tab PO DAILY 01/23/21 [History] Dicyclomine HCl 10 mg PO DAILY 09/27/21 [History] Hx Tetanus, Diphtheria Vaccination/Date Given: Yes Hx Influenza Vaccination/Date Given: Yes Hx Pneumococcal Vaccination/Date Given: Yes Travel Risk - International Travel Have you traveled outside of the country in past 3 weeks: No - Coronavirus Screening Are you exhibiting any of the following symptoms?: Yes Symptoms: Shortness of Breath Close contact with a COVID-19 positive Pt in past 14-21 Days: Yes - Vaccine Status Have you recieved a Covid-19 vaccination: Yes [employer]: [employer] - Vaccination Dates Dates if Unknown: Pt unsure - Review of Systems Constitutional: No Symptoms Eyes: No Symptoms Ears, Nose, & Throat: No Symptoms, Snoring Respiratory: Cough, Dyspnea, Wheezing Cardiac: No Symptoms Abdominal/Gastrointestinal: No Symptoms Genitourinary Symptoms: No Symptoms Musculoskeletal: No Symptoms Skin: No Symptoms Neurological: No Symptoms Psychological: No Symptoms Endocrine: No Symptoms - Past Medical History Pertinent Past Medical History: Yes Neurological History: No Pertinent History ENT History: No Pertinent History Cardiac History: Hypertension Respiratory History: Bronchitis, COPD, Emphysema, Pneumonia, Other Endocrine Medical History: No Pertinent History Musculoskeletal History: Osteoarthritis GI Medical History: GERD History: No Pertinent History Psycho-Social History: Anxiety, Depression Male Reproductive Disorders: No Pertinent History Other Medical History: asthma - Past Surgical History Past Surgical History: Yes Neuro Surgical History: No Pertinent History Cardiac: No Pertinent History Respiratory: Chest Surgery Gastrointestinal: Appendectomy Genitourinary: No Pertinent History Musculoskeletal: No Pertinent History Male Surgical History: Testicular Surgery Other Surgical History: mole removed from chest, collapsed lung with chest tube and removal (suspected suture left in place), undescended testicle right side, - Social History Smoking Status: Former smoker Exposure to second hand smoke: No Drug Use: none Patient Lives Alone: No - Nursing Vital Signs Nursing Vital Signs: Initial Vital Signs Temperature 97.8 F 10/24/21 11:09 Pulse Rate 54 L 10/24/21 11:09 Respiratory Rate 24 10/24/21 11:09 Blood Pressure 152/89 10/24/21 11:09 O2 Sat by Pulse Oximetry 94 L 10/24/21 11:09 Pain Scale Pain Intensity 0 - Physical Exam General Appearance: no apparent distress, alert Eye Exam: PERRL/EOMI, eyes nml inspection Ears, Nose, Throat Exam: hearing grossly normal, normal ENT inspection, normal pharynx Neck Exam: normal inspection, non-tender, supple, full range of motion Respiratory Exam: diminished breath sounds, rhonchi, wheezing Cardiovascular/Chest Exam: normal heart sounds, bradycardia Abdominal/Gastrointestinal Exam: soft, normal bowel sounds, No tenderness Extremity Exam: non-tender, normal range of motion Neurologic Exam: alert, oriented x 3, cooperative Skin Exam: normal color SpO2 Interpretation: normal SpO2: 99 O2 Delivery: Room Air - Course EKG Interpreted by Me: RATE (57), Sinus Link, NORMAL AXIS, NORMAL INTERVALS, NORMAL QRS Ordered Tests: Medication Summary Discontinued Medications Generic Name Dose Route Start Last Admin Trade Name Freq PRN Reason Stop Dose Admin Albuterol/Ipratropium 3 ml 10/24/21 11:33 10/24/21 12:01 Ipratropium/Albuterol Sulfate 3 Ml Ampul.Neb IH 10/24/21 11:34 3 ml STAT ONE Administration Albuterol/Ipratropium Confirm 10/24/21 11:55 Ipratropium/Albuterol Sulfate 3 Ml Ampul.Neb Administered 10/24/21 11:56 Dose 3 ml IH .STK-MED ONE Methylprednisolone Sodium 0 mg 10/24/21 11:33 10/24/21 11:51 Succinate 125 mg/ Sterile IV 10/24/21 11:34 125 mg Water 2 ml STAT ONE Administration Doxycycline Hyclate 100 mg 10/24/21 14:46 10/24/21 14:54 Doxycycline Hyclate 100 Mg Tablet PO 10/24/21 14:47 100 mg STAT ONE Administration Doxycycline Hyclate Confirm 10/24/21 14:53 Doxycycline Hyclate 100 Mg Tablet Administered 10/24/21 14:54 Dose 100 mg .ROUTE .STK-MED ONE Methylprednisolone Sodium Succinate Confirm 10/24/21 11:46 Methylprednis Sod Succ 125 Mg/2 Ml Vial Administered 10/24/21 11:47 Dose 125 mg .ROUTE .STK-MED ONE Sterile Water Confirm 10/24/21 11:46 Water For Injection,Sterile 10 Ml Vial Administered 10/24/21 11:47 Dose 10 ml IJ .STK-MED ONE Lab/Rad Data: Laboratory Result Diagrams 10/24/21 11:40 10/24/21 11:40 Laboratory Results 10/24/21 10/24/21 10/24/21 Range/Units 14:50 11:40 11:40 WBC (4.0-10.5) K/mm3 RBC (4.1-5.6) M/mm3 Hgb (12.5-18.0) gm/dl Hct (42-50) % MCV (78-100) fl MCH (26-32) pg MCHC (32-36) g/dl RDW (11.5-14.0) % Plt Count (150-450) K/mm3 MPV (7.5-11.0) fl Gran % (36.0-66.0) % Eos # (Auto) (0-0.5) Absolute Lymphs (auto) (1.0-4.6) Absolute Monos (auto) (0.0-1.3) Lymphocytes % (24.0-44.0) % Monocytes % (0.0-12.0) % Eosinophils % (0.00-5.0) % Basophils % (0.0-0.4) % Absolute Granulocytes (1.4-6.9) Basophils # (0-0.4) D-Dimer < 215 L (215-500) ng/mL Sodium (137-145) mmol/L Potassium (3.5-5.1) mmol/L Chloride (98-107) mmol/L Carbon Dioxide (22-30) mmol/L Anion Gap (5-15) MEQ/L BUN (9-20) mg/dL Creatinine (0.66-1.25) mg/dL Estimated GFR ML/MIN Glucose (74-106) mg/dL Lactic Acid (0.4-2.0) Calcium (8.4-10.2) mg/dL Magnesium (1.6-2.3) mg/dL Total Bilirubin (0.2-1.3) mg/dL AST (17-59) U/L ALT (0-50) U/L Alkaline Phosphatase (38-126) U/L Troponin I < 0.012 < 0.012 (0.000-0.034) ng/mL NT-Pro-B Natriuret Pep (0-900) pg/mL Serum Total Protein (6.3-8.2) g/dL Albumin (3.5-5.0) g/dL 10/24/21 10/24/21 10/24/21 Range/Units 11:40 11:40 11:33 WBC 9.6 (4.0-10.5) K/mm3 RBC 4.60 (4.1-5.6) M/mm3 Hgb 14.6 (12.5-18.0) gm/dl Hct 43.5 (42-50) % MCV 94.6 (78-100) fl MCH 31.7 (26-32) pg MCHC 33.6 (32-36) g/dl RDW 12.3 (11.5-14.0) % Plt Count 269 (150-450) K/mm3 MPV 10.0 (7.5-11.0) fl Gran % 66.1 H (36.0-66.0) % Eos # (Auto) 0.90 H (0-0.5) Absolute Lymphs (auto) 1.58 (1.0-4.6) Absolute Monos (auto) 0.74 (0.0-1.3) Lymphocytes % 16.4 L (24.0-44.0) % Monocytes % 7.7 (0.0-12.0) % Eosinophils % 9.4 H (0.00-5.0) % Basophils % 0.4 (0.0-0.4) % Absolute Granulocytes 6.36 (1.4-6.9) Basophils # 0.04 (0-0.4) D-Dimer (215-500) ng/mL Sodium 138 (137-145) mmol/L Potassium 4.5 (3.5-5.1) mmol/L Chloride 100 (98-107) mmol/L Carbon Dioxide 33 H (22-30) mmol/L Anion Gap 10.0 (5-15) MEQ/L BUN 13 (9-20) mg/dL Creatinine 0.89 (0.66-1.25) mg/dL Estimated GFR > 60.0 ML/MIN Glucose 104 (74-106) mg/dL Lactic Acid 0.9 (0.4-2.0) Calcium 8.8 (8.4-10.2) mg/dL Magnesium 1.9 (1.6-2.3) mg/dL Total Bilirubin 0.50 (0.2-1.3) mg/dL AST 29 (17-59) U/L ALT 17 (0-50) U/L Alkaline Phosphatase 56 (38-126) U/L Troponin I (0.000-0.034) ng/mL NT-Pro-B Natriuret Pep 151 (0-900) pg/mL Serum Total Protein 6.8 (6.3-8.2) g/dL Albumin 4.0 (3.5-5.0) g/dL - Progress Progress: improved Air Movement: good Progress Note: 10/24/21 14:47 51 years old is evaluated for increasing shortness of breath. Given Solu-Medrol and breathing treatment, on reevaluation feeling better. EKG did not show any acute ischemic changes and negative troponins x2 and normal D-dimers. Chest x-ray did not show any acute infiltrative process. I believe he has COPD exacerbation and given doxycycline along with a short course of steroids and recommended continue with neb treatments. Maintaining oxygen saturation at room air around 98%. Not in any distress. Discussed signs symptoms of worsening needing return to ER which he seems understanding. Blood Culture(s) Obtained: Yes Antibiotics given: Yes Counseled pt/family regarding: lab results, diagnosis, need for follow-up, rad results - Departure Departure Disposition: Home Clinical Impression: COPD exacerbation Condition: Stable Critical Care Time: No Referrals: DEVANG PENG MD [Primary Care Provider] - Follow up/PCP as directed (In 2 days for reevaluation) Instructions: Chronic Obstructive Pulmonary Disease, Exacerbation of COPD (DC) Additional Instructions: Use nebulizer every 4-6 hour as needed. Follow-up with primary care for reevaluation. Return to ER for worsening shortness of breath, chest pain, fever etc. Prescriptions: Prednisone 20 mg [Deltasone 20 mg] 60 mg PO DAILY 5 Days #15 tablet Doxycycline Hyclate 100 mg [Vibramycin 100 MG] 100 mg PO BID #14 tab
[2021-10-24 12:14] LABS: Absolute Neutrophil Ct (ANC) 6.36 (1.4-6.9); Basophil (Absolute #) 0.04 (0-0.4); Eosinophil % 9.4 % (0.00-5.0); Hematocrit 43.5 % (42-50); Hemoglobin 14.6 gm/dl (12.5-18.0); Lymphocyte (Absolute #) 1.58 (1.0-4.6); Lymphocytes % 16.4 % (24.0-44.0); Mean Cell Volume 94.6 fl (78-100); Mean Corpuscular Hemoglobin 31.7 pg (26-32); Mean Corpuscular Hgb Concent. 33.6 g/dl (32-36); Monocyte (Absolute #) 0.74 (0.0-1.3); Monocytes % 7.7 % (0.0-12.0); Neutrophil % 66.1 % (36.0-66.0); Platelet Count 269 K/mm3 (150-450); Red Cell Distribution Width 12.3 % (11.5-14.0); White Blood Count 9.6 K/mm3 (4.0-10.5)
[2021-10-24 12:29] LABS: ALKALINE PHOSPHATASE 56 U/L (38-126); BLOOD UREA NITROGEN 13 mg/dL (9-20); CHLORIDE 100 mmol/L (98-107); Calcium 8.8 mg/dL (8.4-10.2); Carbon Dioxide 33 mmol/L (22-30); Creatinine 1 0.89 mg/dL (0.66-1.25); EST GLOMERULAR FILTRATION RATE > 60.0 ML/MIN; Glucose 104 mg/dL (74-106); MAGNESIUM 1.9 mg/dL (1.6-2.3); NT PRO BNP 151 pg/mL (0-900); Potassium 4.5 mmol/L (3.5-5.1); SGOT/AST 29 U/L (17-59); SGPT/ALT 17 U/L (0-50); SODIUM 138 mmol/L (137-145); Total Protein 6.8 g/dL (6.3-8.2)
[2021-10-24] MEDS ORDERED: Vibramycin 100 MG PO ONE (14:46)
[2021-10-24] MEDS ORDERED: Vibramycin 100 MG ONE (14:53)
[2021-10-24 15:08] VITALS: BP 124/74; PULSE 51
--- NOTE | 2021-10-24 18:52 | XRAY ---
Indication: Short of breath. Comparison: September 27, 2021. Portable chest unchanged again demonstrating a few tiny calcified granulomas and left lung postoperative changes. Heart and mediastinal structures within normal limits. Bony thorax intact again with old left 7/8 rib fractures. No new/acute findings. Impression: Nonacute chest with chronic features.
[2021-10-24 20:56] VITALS: O2SAT 99
== END 2021-10-24 15:59 | disposition home or self-care (01) ==
LOC: ED 11:08
DX: J44.1 Chronic obstructive pulmonary disease with (acute) exacerbation (principal); R05.9 Cough, unspecified; K21.9 Gastro-esophageal reflux disease without esophagitis; I10 Essential (primary) hypertension; Z79.52 Long term (current) use of systemic steroids
CPT/HCPCS: 36000; 36415; 71045; 80053; 83605; 83735; 83880; 84484; 85025; 85379; 87040; 93005; 93041; 94640; 96374; 99284; J2930; A9270-GY